=== PATIENT | female | born 1930 | race Caucasian/White ===

== ENCOUNTER 2017-03-14 23:33 | Inpatient (IN) | payer OTHER ==
[~2017-03-14] VITALS: Ht 167.6 cm; Wt 75.7 kg
[~2017-03-14 23:33] MED LIST: ACET160L15 PO; ACET325T9 PO; ACET325T9 RC; ALLO300T PO; AMLO2.5T PO; ASPI325T4 PO; ATOR10TA60 PO; BISA10SU55 RC; BISM262O PO; CARV3.122 PO; DEXT15DR5 EACHEYE; FURO-68 PO; FURO-69 PO; GUAI-297 PO; LEVE500T56 PO; LEVO75CA PO; LOVA20TA PO; MAGN2400 PO; METO25TA4 PO; NIFE30TA17 PO; NIFE60TA16 PO; OMEG1000 PO; POLY15DR28 OP; POTA20TA82 PO; SERT50TA PO; VENL75CA PO; [UNRECOGNIZED DRUG - CODE] PO
[2017-03-15 00:36] LABS: BASO # 0.1 x10^3/uL (0.0-0.2); BASO % 1 % (0-3); EOS % 5 % (0-3); HEMOGLOBIN 11.5 g/dL (12.0-15.5); LYMPH # 2.4 x10^3/uL (1.0-4.8); LYMPH % 40 % (24-48); MEAN CORPUSCULAR HEMOGLOBIN 34 pg (25-35); MEAN CORPUSCULAR HGB CONC 34 g/dL (31-37); MEAN CORPUSCULAR VOLUME 99 fL (79-100); MONO % 6 % (0-9); NEUT % 48 % (31-73); PLATELET COUNT 182 x10^3/uL (140-400); RED BLOOD COUNT 3.43 x10^6/uL (3.50-5.40); WHITE BLOOD COUNT 6.1 x10^3/uL (4.0-11.0)
[2017-03-15 00:48] LABS: CALCIUM 8.6 mg/dL (8.5-10.1); CREATININE 0.7 mg/dL (0.6-1.0); POTASSIUM 3.2 mmol/L (3.5-5.1)
[2017-03-15 00:51] LABS: PROTHROMBIN TIME PATIENT 12.3 SEC (11.7-14.0)
[2017-03-15 00:54] LABS: ALBUMIN/GLOBULIN RATIO 0.9 (1.0-1.7); TOTAL BILIRUBIN 0.4 mg/dL (0.2-1.0); TOTAL PROTEIN 6.2 g/dL (6.4-8.2)
[2017-03-15 01:05] LABS: BILIRUBIN,URINE NEGATIVE (NEG); GLUCOSE,URINE NEGATIVE (NEG); NITRITE,URINE NEGATIVE (NEG); PROTEIN,URINE NEGATIVE (NEG-TRACE); UROBILINOGEN,URINE 0.2 mg/dL (0.2 mg/dL)
--- NOTE | 2017-03-15 01:06 | RAD ---
INDICATION: Status post fall COMPARISON: September 18, 2016 TECHNIQUE: Axial CT images obtained through the head. One or more of the following individualized dose reduction techniques were utilized for this examination: 1. Automated exposure control; 2. Adjustment of the mA and/or kV according to patient size; 3. Use of iterative reconstruction technique. FINDINGS: No midline shift. Ventricles and sulci are prominent. Basilar cistern patent. No gross hemorrhage or intracranial mass. No displaced skull fracture. Regions of low attenuation of the white matter. Regions of encephalomalacia left cerebral hemisphere could be from old infarct. IMPRESSION: No acute intracranial hemorrhage. Regions of low attenuation of the white matter. Nonspecific but frequently secondary to chronic small vessel ischemic disease. Electronically signed by: Wayne Luke (March 15, 2017 01:04:36)
[2017-03-15 01:18] LABS: BACTERIA,URINE FEW /HPF (0-FEW); RBC,URINE 0 /HPF (0-2); WBC,URINE OCC /HPF (0-4)
[2017-03-15 01:19] LABS: SQUAMOUS EPITHELIAL CELL,UR FEW /LPF
[2017-03-15] MEDS ORDERED: ACETAMINOPHEN 325 MG TABLET. PO PRN ×2 (01:45→03:45)
[2017-03-15] MEDS ORDERED: ONDANSETRON PF 4 MG/2 ML VIAL. IV PRN (01:45)
[2017-03-15] MEDS ORDERED: POTASSIUM CHLORIDE 20 MEQ TABLET.ER. PO ONE (03:00)
[2017-03-15 03:22] VITALS: BP 154/63
[2017-03-15] MEDS ORDERED: ACET500T68 PO (03:45)
[2017-03-15] MEDS ORDERED: MENT118G TP (03:45)
[2017-03-15] MEDS ORDERED: [UNRECOGNIZED DRUG - CODE] TP (03:45)
[2017-03-15] MEDS ORDERED: MAGNESIUM HYDROXIDE 2,400 MG/30 ML ORAL.SUSP. PO PRN (04:00)
--- NOTE | 2017-03-15 04:58 | ACF ---
Admission Forms Criteria TELEMETRY CARE Telemetry Admission Guidelines (Place 'X' for any and all applicable criteria): Admission to telemetry [A] may be indicated for ANY ONE of the following(1)(2)(3 )(4)(5): [X]I. Cardiac disease, including ANY ONE of the following (9)(10)(11)(12)(13 ): [ ]a) Postacute MT [ ]b) Low-risk patients with ST-segment elevation MT who have undergone successful percutaneous coronary intervention [ ]c) Unstable angina [ ]d) Suspected MT (until it is ruled out) [ ]e) Post cardiac surgery (first 48 to 72 hours unless complications occur) [X]f) Acute arrhythmias (including significant tachycardia or bradycardia) [B] [ ]g) Firing of an implantable cardioverter defibrillator [C] [ ]h) Suspected pacemaker or implantable cardioverter defibrillator malfunction (10) [ ]i) New administration or adjustment of an antiarrhythmic drug [D ] [ ]j) Child admitted for acute congestive heart failure [ ]j) Long QT syndrome [ ]k) Advanced heart block (eg, second-degree Mobitz type II, third- degree heart block) [ ]l) Acute myocarditis or pericarditis [ ]m) Short-term (ambulatory or inpatient) monitoring after a cardiac procedure as indicated by ANY ONE of the following [E]: [ ]i) Electrophysiologic studies [ ]ii) Percutaneous coronary intervention with stent placement [ ]iii) Pacemaker placement with cardiac conduction defect [ ]iv) Implantable cardiac defibrillator placement [ ]II. Drug overdose or poisoning with substance that causes arrhythmias or QT prolongation (eg, phenothiazines, sympathomimetic agents, cyclic antidepressants, digitalis, antiarrhythmic drugs)(15) [ ]III. Short-term (ambulatory or inpatient) monitoring after therapeutic or diagnostic procedure requiring conscious sedation or anesthesia (eg, endoscopy, elective cardioversion) [ ]IV. Acute cerebrovascular even[F](18) [ ]V. Massive blood transfusion (eg, at least 10 units of packed red blood cells in 24 hours) [ ]. Variceal bleeding after endoscopy, sclerotherapy, or IV vasopressin [ ]VII. Uncorrected electrolyte abnormalities associated with an increased risk of dangerous arrhythmia [G]; examples include [ ]a) Hyperkalemia with attributable ECG changes [ ]b) Potassium greater than 6.5 mmol/L (mEq/L) in a patient without history of chronic renal disease [ ]c) Prolonged QT attributed to hypokalemia, hypomagnesemia, or hypocalcemia [ ]VIII.Unexplained syncope or other neurologic event suspected of being due to arrhythmia due to a finding that increases risk; examples include(19)(20)(21): [ ]a) High-risk ECG findings (eg, bifascicular block, bradycardia, abnormal QT interval, ventricular pre- excitation) [ ]b) History of previous syncope due to arrhythmia [ ]c) Abnormal ventricular function (eg, reduced ejection fraction ) [ ]d) Exertional or supine syncope [ ]e) Concerning syncope characteristics (eg, sudden loss of consciousness without prodrome) [ ]f) Family history of sudden [ ]g) Use of arrhythmogenic medication [ ]h) Suspected cardiac ischemia [ ]i) Known channelopathy (eg, long QT syndrome, Brugada syndrome, or catecholaminergic paroxysmal ventricular tachycardia) [ ]j) Known structural heart disease (eg, hypertrophic cardiomyopathy , severe valvular disease) [ ]k) Palpitations preceding syncope The original [employer] content created by [employer] has been revised. The portions of the content which have been revised are identified through the use of italic text or in bold, and [employer] has neither reviewed nor approved the modified material. All other unmodified content is copyright [employer]. Please see references footnoted in the original [employer] edition 2016 Admission Criteria Met?: Yes OLI SYKES March 15, 2017 04:58
--- NOTE | 2017-03-15 05:31 | PHYS DOC ---
Past Medical History Past Medical History: CVA, Depression, DVT, High Cholesterol, Hypertension, Hypothyroid, TIA Additional Past Medical Histor: Gout, osteoarthritis Past Surgical History: Hysterectomy, Other Additional Past Surgical Histo: bladder; "blood clot stent" Alcohol Use: None Drug Use: None Adult General Chief Complaint Chief Complaint: SYNCOPE HPI HPI Patient is a 87 year old female with a history significant for kidney disease and appendicitis in the past presents to the ER today secondary to falling twice. Patient reports that she has a history of hypertension and she is on calcium channel blockers for this. Patient reports today she fell twice and currently is complaining of pain to her left arm. Patient denies any head trauma. Patient complaining of left shoulder pain. Patient denies any fevers shakes chills patient denies any nausea vomiting or diarrhea. Patient has any chest pain or shortness of breath. Patient has any cough cold or runny nose. Patient has a dysuria frequency or urgency. Patient reports she been eating and drinking normally. Patient denies any pain to her back. Patient does complain of little bit of discomfort to her head on the left side. Patient reports that she thinks she is unclear as to why she fell. Patient thinks that she might have passed out prior to falling. Patient reports that she started on dizzy and fell. Patient does not recall being told that her heart rate is slow in the past. Patient's physical exam is significant for soft tissue swelling and ecchymosis with hematoma to her left proximal humerus. Patient's full range of motion to her shoulder joint. Patient has no C-spine T-spine or L-spine tenderness palpation. Patient has no tenderness to palpation to her left upper or right upper quadrant. Patient has no deformity or tenderness to her left or right hip. Patient has full range of motion to her lower 70s without any obvious discomfort. There is no shortening or rotation of her lower 70s. Patient is currently alert awake and oriented 3 and appropriate. Patient is able to make jokes and get around with me while wearing the ER and appears to be in good spirits. Patient's ER workup was remarkable for sinus bradycardia on her EKG and monitor. Patient's heart rate has been running intermittent between 45-55 on her monitor. Patient is alert awake and oriented 3. Patient had a CT scan that was unremarkable for any acute pathology. Patient's x-ray of her left shoulder was unremarkable for any acute fracture. Assessment and plan Syncopal episode. Patient's clinically he would and hemodynamically stable. Patient's workup in ER has been unremarkable as far except for her bradycardia. Patient will be admitted to the hospital for further evaluation and management of her bradycardia. Patient is on a calcium channel yakov. I discussed the case with her primary care physician Dr. Robledo in his requesting that we consult physical therapy as well as Dr. Gertrude Calixto to evaluate her further for her syncopal episodes and gait instability. Arm pain no acute fracture likely bruise/contusion/hematoma. Review of Systems Review of Systems Constitutional: Denies fever or chills [] Eyes: Denies change in visual acuity, redness, or eye pain [] HENT: Denies nasal congestion or sore throat [] All other review systems are negative except as documented in history of present illness portion. Allergies Allergies Allergies Coded Allergies Type Severity Reaction Last Updated Verified Penicillins Allergy Intermediate Rash 09/28/16 Yes Sulfa (Sulfonamide Antibiotics) Allergy Intermediate 02/09/17 Yes codeine Allergy Intermediate Rash 09/28/16 Yes iodine Allergy Intermediate 02/09/17 Yes oxybutynin Allergy Intermediate 02/09/17 Yes quinapril HCl Allergy Intermediate Rash 09/28/16 Yes tramadol Allergy Intermediate 02/09/17 Yes Physical Exam Physical Exam Constitutional: Well developed, well nourished, no acute distress, non-toxic appearance. [] HENT: Normocephalic, atraumatic, bilateral external ears normal, oropharynx moist, no oral exudates, nose normal. [] Eyes: PERRLA, EOMI, conjunctiva normal, no discharge. [] Neck: Normal range of motion, no tenderness, supple, no stridor. [] Cardiovascular:Heart rate regular rhythm bradycardic. Lungs & Thorax: Bilateral breath sounds clear to auscultation [] Abdomen: Bowel sounds normal, soft, no tenderness, no masses, no pulsatile masses. [] Skin: Warm, dry, no erythema, no rash. [] Back: No tenderness, no CVA tenderness. [] Extremities: No tenderness, no cyanosis, Neurologic: Alert and oriented X 3, normal motor function, normal sensory function, no focal deficits noted. [] Psychologic: Affect normal, judgement normal, mood normal. [] Current Patient Data Vital Signs Vital Signs Date Time Temp Pulse Resp B/P (MAP) Pulse Ox O2 Delivery O2 Flow Rate FiO2 03/15/17 01:26 52 200/78 (118) 96 Room Air 03/15/17 01:11 18 03/14/17 23:33 98.1 98.1 Lab Values Laboratory Tests Test 03/15/17 00:20 03/15/17 00:52 White Blood Count 6.1 x10^3/uL (4.0-11.0) Red Blood Count 3.43 x10^6/uL (3.50-5.40) L Hemoglobin 11.5 g/dL (12.0-15.5) L Hematocrit 34.0 % (36.0-47.0) L Mean Corpuscular Volume 99 fL (79-100) Mean Corpuscular Hemoglobin 34 pg (25-35) Mean Corpuscular Hemoglobin Concent 34 g/dL (31-37) Red Cell Distribution Width 15.0 % (11.5-14.5) H Platelet Count 182 x10^3/uL (140-400) Neutrophils (%) (Auto) 48 % (31-73) Lymphocytes (%) (Auto) 40 % (24-48) Monocytes (%) (Auto) 6 % (0-9) Eosinophils (%) (Auto) 5 % (0-3) H Basophils (%) (Auto) 1 % (0-3) Neutrophils # (Auto) 2.9 x10^3uL (1.8-7.7) Lymphocytes # (Auto) 2.4 x10^3/uL (1.0-4.8) Monocytes # (Auto) 0.4 x10^3/uL (0.0-1.1) Eosinophils # (Auto) 0.3 x10^3/uL (0.0-0.7) Basophils # (Auto) 0.1 x10^3/uL (0.0-0.2) Prothrombin Time 12.3 SEC (11.7-14.0) Prothrombin Time INR 1.0 (0.8-1.1) Sodium Level 143 mmol/L (136-145) Potassium Level 3.2 mmol/L (3.5-5.1) L Chloride Level 107 mmol/L (98-107) Carbon Dioxide Level 26 mmol/L (21-32) Anion Gap 10 (6-14) Blood Urea Nitrogen 16 mg/dL (7-20) Creatinine 0.7 mg/dL (0.6-1.0) Estimated GFR (Cockcroft-Gault) 79.0 BUN/Creatinine Ratio 23 (6-20) H Glucose Level 116 mg/dL (70-99) H Calcium Level 8.6 mg/dL (8.5-10.1) Total Bilirubin 0.4 mg/dL (0.2-1.0) Aspartate Amino Transferase (AST) 36 U/L (15-37) Alanine Aminotransferase (ALT) 21 U/L (14-59) Alkaline Phosphatase 68 U/L (46-116) Troponin I Quantitative < 0.017 ng/mL (0.000-0.055) HV-Ojz-C-Type Natriuretic Peptide 885 pg/mL (0-449) H Total Protein 6.2 g/dL (6.4-8.2) L Albumin 3.0 g/dL (3.4-5.0) L Albumin/Globulin Ratio 0.9 (1.0-1.7) L Urine Collection Type Unknown Urine Color Yellow Urine Clarity Clear Urine pH 7.0 Urine Specific [place] 1.015 Urine Protein Negative mg/dL (NEG-TRACE) Urine Glucose (UA) Negative mg/dL (NEG) Urine Ketones (Stick) Negative mg/dL (NEG) Urine Blood Negative (NEG) Urine Nitrite Negative (NEG) Urine Bilirubin Negative (NEG) Urine Urobilinogen Dipstick 0.2 mg/dL (0.2 mg/dL) Urine Leukocyte Esterase Negative (NEG) Urine RBC 0 /HPF (0-2) Urine WBC Occ /HPF (0-4) Urine Squamous Epithelial Cells Few /LPF Urine Bacteria Few /HPF (0-FEW) Urine Mucus Slight /LPF Laboratory Tests 03/15/17 00:20 Laboratory Tests 03/15/17 00:20 EKG EKG [] Radiology/Procedures Radiology/Procedures [] Course & Med Decision Making Course & Med Decision Making Pertinent Labs and Imaging studies reviewed. (See chart for details) [] Dragon Disclaimer Dragon Disclaimer This electronic medical record was generated, in whole or in part, using a voice recognition dictation system. Departure Departure Impression: Primary Impression: Bradyarrhythmia Additional Impressions: Status post fall Syncope Disposition: ADMITTED INPATIENT Admitting Physician: Taurus Robledo Condition: STABLE Referrals: TAURUS ROBLEDO MD (PCP) Problem Qualifiers FLORINDA VALADEZ MD March 15, 2017 05:31
[2017-03-15] MEDS: LEVOTHYROXINE 75 MCG TABLET PO SCH (06:06)
[2017-03-15 07:00] VITALS: BP 139/54
--- NOTE | 2017-03-15 07:18 | RAD ---
Portable chest, 03/15/2017: History: Syncope, multiple falls Comparison is made to a study from 02/07/2017. The heart size and pulmonary vascularity are normal. There is moderate calcific plaquing of the thoracic aorta. No acute infiltrates are seen. There is mild unchanged elevation of the right hemidiaphragm. There is minimal right basilar scarring. There is no evidence of pleural fluid. The bony structures are demineralized. Degenerative changes are present at the shoulders. IMPRESSION: No acute cardiopulmonary abnormality is detected.
--- NOTE | 2017-03-15 07:20 | RAD ---
Left shoulder, 3 views, 03/15/2017: History: Shoulder pain after a fall The bony structures are demineralized. No fracture or dislocation is identified. There are mild degenerative changes at the shoulder. Arterial calcifications are present. IMPRESSION: 1. Demineralization. 2. No acute left shoulder abnormality is detected. Left humerus, 2 views, 03/15/2017: The bony structures are demineralized. No fracture is identified. IMPRESSION: No acute left humeral abnormality is detected.
[2017-03-15] MEDS: SERTRALINE 50 MG TABLET. PO SCH (09:29)
[2017-03-15] MEDS: ACETAMINOPHEN 325 MG TABLET. PO SCH ×4 (09:29→20:34)
[2017-03-15] MEDS: levETIRAcetam 500 MG TABLET PO SCH ×2 (09:29→20:34)
[2017-03-15] MEDS: ALLOPURINOL 300 MG TABLET. PO SCH (09:29)
[2017-03-15] MEDS: amLODIPine BESYLATE 5 MG TABLET PO SCH (09:30)
[2017-03-15] MEDS: MULTIVITAMIN with MINERAL TABLET. PO SCH (09:31)
[2017-03-15] MEDS: ASPIRIN 325 MG TABLET PO SCH (09:31)
[2017-03-15] MEDS ORDERED: POTASSIUM CHLORIDE 20 MEQ/15 ML ORAL LIQUID. PO ONE (10:30)
--- NOTE | 2017-03-15 10:38 | PDOC ---
Provider Note Provider Note history and physical dictated # [id number] HAYLEY ESTRADA MD March 15, 2017 10:38
[2017-03-15 11:00] VITALS: BP 150/59
--- NOTE | 2017-03-15 11:55 | HP ---
ADMIT DATE: 03/15/2017 LOCATION: She is in room 504. HISTORY OF PRESENT ILLNESS: The patient is an 87-year-old white female, lives in an assisted living facility, recently dismissed from the long-term facility one week ago, who has a history of hypertension, hyperlipidemia, hypothyroidism and epilepsy who sustained 2 falls. The first fall occurred earlier in the day and the second fall occurred last night and she is complaining of left shoulder and left arm pain following the fall and believes she had a near syncopal episode. Denied any chest pain or shortness of breath. A chest x-ray, CAT scan of the head, x-ray of the left shoulder and left arm were all negative for any fractures or acute abnormality. She was noted to have a heart rate in the high 40s in the Emergency Room. An EKG was ordered, but I cannot find it in the chart, but her heart rate has been around 50 or so in the hospital. She has been seen by Dr. Wen, who will be checking orthostatic blood pressures and considering placement of a permanent pacemaker for sick sinus syndrome. In addition, her potassium was low today at 3.2. There has been no vomiting or diarrhea. She is therefore, admitted for further evaluation of her near syncope and mobility deficits. She does use a walker. ALLERGIES AND INTOLERANCES: INCLUDE PENICILLIN, SULFA, CODEINE, IODINE, OXYBUTYNIN, QUINAPRIL, AND TRAMADOL. MEDICATIONS: Tylenol 325 mg 1 tablet q.i.d., allopurinol 300 mg every day, amlodipine 5 mg every day, aspirin 325 mg every day, Keppra 500 mg b.i.d., levothyroxine 75 mcg every day, atorvastatin 5 mg at bedtime, Zoloft 50 mg every day, multiple vitamin every day. PAST MEDICAL HISTORY: Significant for hypertension, hyperlipidemia, hypothyroidism, gout, epilepsy, depression, debility. She had a deep vein thrombosis in 2001, cerebrovascular accident in 2001 and 2002. She has an inferior vena cava filter placed. Cardiac catheterization in 2003 showed normal coronary arteries. She had an appendectomy, cholecystectomy, hysterectomy, tonsillectomy, benign breast biopsy. SOCIAL HISTORY: She does not drink alcohol nor does she smoke cigarettes. She lives in assisted living facility, was just released from a long-term facility about a week ago. FAMILY HISTORY: Noncontributory. REVIEW OF SYSTEMS: GENERAL: There has been no fever, chills or sweats in the last 3 days. CARDIOVASCULAR: No chest pain. PULMONARY: No cough or shortness of breath. GASTROINTESTINAL: No constipation. SKIN: No rashes. NEUROLOGIC: No focal weakness. ENDOCRINE: No diabetes mellitus. Rest of systems reviewed are negative except as stated in history of present illness. PHYSICAL EXAMINATION: VITAL SIGNS: Temperature is 97.9 degrees, apical pulse is 49, respiratory rate is 20, blood pressure 139/54, oxygen saturation 94% on room air. HEENT: Eyes: Gaze is conjugate. Mouth: Tongue is midline. She is edentulous. NECK: No cervical lymphadenopathy or thyroid enlargement. HEART: Reveals an S1, S2. There is no S3 or murmur. LUNGS: Clear. ABDOMEN: Soft, nontender. EXTREMITIES: Lower extremities without edema. NEUROLOGIC: She is coherent and has no focal weakness in the arms or legs. SKIN: No rashes. LABORATORY DATA: White count 6.1, hemoglobin 11.5, platelet count , 48 polys and 40 lymphocytes. INR was 1.0. Sodium 143, potassium 3.2, chloride 107, total CO2 of 26. The BUN 16, creatinine 0.7, blood sugar 116. Liver function tests normal. ProBNP was 885. Troponin level was less than 0.017. The albumin was 3.0. Urinalysis showed occasional white cell. Could not find the electrocardiogram on the chart. The chest x-ray showed no acute abnormality. She had a CAT scan of the head done, which showed no acute abnormality. She had some evidence of a previous cerebrovascular accident in the left cerebral hemisphere. She had some encephalomalacia. She also had an x-ray of the left humerus and left shoulder, which was negative. She had some demineralization. Again, I could not locate the EKG. ASSESSMENT: 1. Near syncope with 2 recent falls within the last 24 hours. 2. Sinus bradycardia, suspect sick sinus syndrome. 3. Hypertension. 4. Hyperlipidemia. 5. Hypothyroidism. 6. Hypokalemia. 7. Epilepsy. PLAN: At this time, the patient has been seen by Dr. Wen for Cardiology. Physical and occupational therapy will be ordered. We will continue with her amlodipine for hypertension, allopurinol for gout, levothyroxine for hypothyroidism, atorvastatin for hyperlipidemia, and the Keppra for the seizure disorder. For hypokalemia, we will give her potassium chloride today and recheck her labs tomorrow including a BMP and a magnesium level. SCDs for deep vein thrombosis prophylaxis have been ordered and I will check orthostatic blood pressures. Again, she has been seen by Dr. Wen for Cardiology. She is a [id number] and that was confirmed with the daughter and the patient, and it is also recorded in her records from the assisted living facility. HAYLEY ESTRADA MD DR: LAVELL/deborah JOB#: [id number] / [id number]
--- NOTE | 2017-03-15 14:41 | EKG ---
[facility] [address] [place] [address] Test Date: 2017-03-14 Test Time: 23:39:49 Pat Name: PATRICIO TAYLOR Department: Room: Gender: F Model Technician: : [id number] Requested By: FLORINDA VALADEZ Order Number: [id number] Reading MD: Measurements Intervals [place] Rate: P: MO: QRS: QRSD: T: QT: QTc: Interpretive Statements
[2017-03-15 14:57] VITALS: BP 156/56
[2017-03-15 19:00] VITALS: BP 144/50
[2017-03-15] MEDS: ATORVASTATIN CALCIUM 10 MG TABLET. PO SCH (20:34)
--- NOTE | 2017-03-15 21:00 | PDOC ---
Provider Note Provider Note Consult dictated. Thank you Dr. Robledo for asking me to see her. TRINH GONZALEZ MD March 15, 2017 21:00
[2017-03-15 23:00] VITALS: BP 149/61
[2017-03-16] VITALS (18 sets, daily range): BP systolic 118–156; BP diastolic 53–75
[2017-03-16 04:08] LABS: INR 1.1 (0.8-1.1); PROTHROMBIN TIME PATIENT 13.5 SEC (11.7-14.0)
[2017-03-16 04:16] LABS: CALCIUM 8.7 mg/dL (8.5-10.1); CREATININE 0.8 mg/dL (0.6-1.0); GFR 67.7; MAGNESIUM 1.9 mg/dL (1.8-2.4); POTASSIUM 3.8 mmol/L (3.5-5.1)
--- NOTE | 2017-03-16 04:25 | CONS ---
DATE OF CONSULTATION: 03/15/2017 HISTORY OF PRESENT ILLNESS: This is an 87-year-old white female who came in after two falls. She complained of pain in her shoulder. X-rays were done and there was no evidence of a fracture. She was then hospitalized. She was here about a month ago on 02/07/2017 after a fall. She was noted to have bradycardia in the 50s. While at a heart rate of 50, she was asymptomatic. She also had a very brief episode of atrial tachycardia lasting 5 seconds with a rate of 133 beats per minute. 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 She showed evidence of orthostatic hypotension. She was on Lasix. That was discontinued. During her last hospitalization, she underwent an echocardiogram. The left ventricular systolic function was normal with an ejection fraction of 50-55%. There is no significant valvular dysfunction. There is a grade 1 diastolic dysfunction. Her chest x-ray showed no pulmonary vascular congestion. The Lasix was thus discontinued. She says that the day before hospitalization, when she got up, she felt dizzy and fell. She also had another fall when she was standing. She does get some dizziness on standing. She is a poor historian. She gives history of hypertension, hyperlipidemia, hypothyroidism and epilepsy. She had a TSH drawn the last time and the dose of the Synthroid for her hypothyroidism was adequate. Coronary arteriograms done in 2003 is said to have been normal. In the past, she has had an appendectomy, cholecystectomy and hysterectomy. MEDICATIONS: At the [facility] have been; 1. Allopurinol 300 mg a day. 2. Amlodipine 5 mg a day. 3. Aspirin 325 mg a day. 4. Atorvastatin 10 mg a day. 5. Lasix has been listed, but it was supposed to have been discontinued. 6. Keppra 500 mg twice a day. 7. Synthroid 75 mcg a day. 8. Potassium chloride 20 mEq a day. 9. Zoloft 10 mg at night. PHYSICAL EXAMINATION: GENERAL: She is alert. She is pleasant. She answered questions appropriately. VITAL SIGNS: The heart rate is 50 per minute and regular. The blood pressure is 140/50. LUNGS: Clear. HEART: The heart sounds are normal with no murmur or gallop. EXTREMITIES: There is no edema of the legs. An EKG showed a sinus rhythm. The QRS complex was mildly increased to [address]-T wave changes. LABORATORY DATA: Hemoglobin was 11.5. The BNP was mildly elevated to 885. The BUN was 16, creatinine was 0.7. The sodium was 143 and the potassium was 3.2. A chest x-ray was normal. CT of the head was normal. Orthostatics were done during this hospitalization and there was no evidence of orthostatic hypotension. IMPRESSION: 1. Frequent falls, etiology unclear. 2. Sick sinus syndrome with sinus bradycardia and episodic atrial tachycardia. 3. No evidence of orthostatic hypotension. 4. Mild dementia. This patient has had several falls. She has a consistent heart rate of 50 beats per minute. This is relatively low for a patient in her age. The heart rate does not go up from sitting to a standing position. The blood pressure does not drop. It is quite possible that she is falling due to other reasons such as loss of balance. She has a history of seizures, but I do not think that is the etiology. Even though she is hypothyroid, it is being adequately replaced. This being the case, I believe we should place a permanent pacemaker in her. It would have to be a dual chamber pacemaker so that she paces the atrium and has a normal conduction to the QRS complex. Other measures to prevent a fall such as physical therapy and assistive devices such as or walker should be provided. I will continue to hold the furosemide because she did have orthostatic hypotension at one time and I see no need for it. I have spoken to the patient and her daughter. They are agreeable. It has been scheduled for tomorrow afternoon. In the meantime, I would like to get a Keppra level and an MRI. Thank you, Dr. Robledo for asking me to see her. TRINH GONZALEZ MD DR: JOSEPH/deborah JOB#: [id number] / [id number]
[2017-03-16] MEDS: LEVOTHYROXINE 75 MCG TABLET PO SCH (05:27)
[2017-03-16] MEDS ORDERED: BACITRACIN 50,000 UNIT in IV NORMAL SALINE 250ML 250 ML IRR ONE (06:00)
[2017-03-16] MEDS: ASPIRIN 325 MG TABLET PO SCH (08:22)
[2017-03-16] MEDS: levETIRAcetam 500 MG TABLET PO SCH ×2 (08:28→21:09)
[2017-03-16] MEDS: MULTIVITAMIN with MINERAL TABLET. PO SCH (08:29)
[2017-03-16] MEDS: amLODIPine BESYLATE 5 MG TABLET PO SCH (08:29)
[2017-03-16] MEDS: SERTRALINE 50 MG TABLET. PO SCH (08:30)
[2017-03-16] MEDS: ALLOPURINOL 300 MG TABLET. PO SCH (08:30)
[2017-03-16] MEDS: ACETAMINOPHEN 325 MG TABLET. PO SCH ×4 (08:30→21:00)
--- NOTE | 2017-03-16 11:22 | PDOC ---
PROGRESS NOTES Subjective Subjective feels well. denies chest pain or shortness of breath or dizziness. labs reviewed. had breakfast today. will have pacemaker placed this afternoon. Objective Objective Vital Signs Date Time Temp Pulse Resp B/P (MAP) Pulse Ox O2 Delivery O2 Flow Rate FiO2 03/16/17 11:00 96.1 80 17 146/63 (90) 97 Room Air 96.1 Intake and Output 03/16/17 07:00 Intake Total 920 ml Output Total 2 ml Balance 918 ml Intake Oral 920 ml Output Stool Total 2 ml # Voids 19 Physical Exam Abdomen: Soft Heart: Regular rate, Normal S1, Normal S2 Extremities: No edema General: Alert HEENT: Atraumatic Lungs: Clear to auscultation Neuro: Normal speech Psych/Mental Status: Mood NL Skin: No rashes Assessment Assessment Problems1. Near syncope with 2 recent falls within the last 24 hours. 2. sick sinus syndrome. 3. Hypertension. 4. Hyperlipidemia. 5. Hypothyroidism. 6. Hypokalemia. resolved 7. Epilepsy. Medical Problems: (1) Status post fall Status: Acute (2) Syncope Status: Acute Plan Plan of Care permanent pacemaker today Comment Review of Relevant I have reviewed the following items toribio (where applicable) has been applied. Labs Laboratory Tests Test 03/15/17 00:20 03/15/17 00:52 03/15/17 06:00 03/16/17 03:40 White Blood Count 6.1 x10^3/uL (4.0-11.0) Red Blood Count 3.43 x10^6/uL (3.50-5.40) Hemoglobin 11.5 g/dL (12.0-15.5) Hematocrit 34.0 % (36.0-47.0) Mean Corpuscular Volume 99 fL (79-100) Mean Corpuscular Hemoglobin 34 pg (25-35) Mean Corpuscular Hemoglobin Concent 34 g/dL (31-37) Red Cell Distribution Width 15.0 % (11.5-14.5) Platelet Count 182 x10^3/uL (140-400) Neutrophils (%) (Auto) 48 % (31-73) Lymphocytes (%) (Auto) 40 % (24-48) Monocytes (%) (Auto) 6 % (0-9) Eosinophils (%) (Auto) 5 % (0-3) Basophils (%) (Auto) 1 % (0-3) Neutrophils # (Auto) 2.9 x10^3uL (1.8-7.7) Lymphocytes # (Auto) 2.4 x10^3/uL (1.0-4.8) Monocytes # (Auto) 0.4 x10^3/uL (0.0-1.1) Eosinophils # (Auto) 0.3 x10^3/uL (0.0-0.7) Basophils # (Auto) 0.1 x10^3/uL (0.0-0.2) Prothrombin Time 12.3 SEC (11.7-14.0) 13.5 SEC (11.7-14.0) Prothromb Time International Ratio 1.0 (0.8-1.1) 1.1 (0.8-1.1) Sodium Level 143 mmol/L (136-145) 144 mmol/L (136-145) Potassium Level 3.2 mmol/L (3.5-5.1) 3.8 mmol/L (3.5-5.1) Chloride Level 107 mmol/L (98-107) 110 mmol/L (98-107) Carbon Dioxide Level 26 mmol/L (21-32) 25 mmol/L (21-32) Anion Gap 10 (6-14) 9 (6-14) Blood Urea Nitrogen 16 mg/dL (7-20) 14 mg/dL (7-20) Creatinine 0.7 mg/dL (0.6-1.0) 0.8 mg/dL (0.6-1.0) Estimated GFR (Cockcroft-Gault) 79.0 67.7 BUN/Creatinine Ratio 23 (6-20) Glucose Level 116 mg/dL (70-99) 99 mg/dL (70-99) Calcium Level 8.6 mg/dL (8.5-10.1) 8.7 mg/dL (8.5-10.1) Total Bilirubin 0.4 mg/dL (0.2-1.0) Aspartate Amino Transf (AST/SGOT) 36 U/L (15-37) Alanine Aminotransferase (ALT/SGPT) 21 U/L (14-59) Alkaline Phosphatase 68 U/L (46-116) Troponin I Quantitative < 0.017 ng/mL (0.000-0.055) KS-Abm-M-Type Natriuretic Peptide 885 pg/mL (0-449) Total Protein 6.2 g/dL (6.4-8.2) Albumin 3.0 g/dL (3.4-5.0) Albumin/Globulin Ratio 0.9 (1.0-1.7) Urine Collection Type Unknown Urine Color Yellow Urine Clarity Clear Urine pH 7.0 Urine Specific Adel 1.015 Urine Protein Negative mg/dL (NEG-TRACE) Urine Glucose (UA) Negative mg/dL (NEG) Urine Ketones (Stick) Negative mg/dL (NEG) Urine Blood Negative (NEG) Urine Nitrite Negative (NEG) Urine Bilirubin Negative (NEG) Urine Urobilinogen Dipstick 0.2 mg/dL (0.2 mg/dL) Urine Leukocyte Esterase Negative (NEG) Urine RBC 0 /HPF (0-2) Urine WBC Occ /HPF (0-4) Urine Squamous Epithelial Cells Few /LPF Urine Bacteria Few /HPF (0-FEW) Urine Mucus Slight /LPF Nasal Screen MRSA (PCR) Negative (Negative) Magnesium Level 1.9 mg/dL (1.8-2.4) Laboratory Tests Test 03/16/17 03:40 Prothrombin Time 13.5 SEC (11.7-14.0) Prothromb Time International Ratio 1.1 (0.8-1.1) Sodium Level 144 mmol/L (136-145) Potassium Level 3.8 mmol/L (3.5-5.1) Chloride Level 110 mmol/L (98-107) Carbon Dioxide Level 25 mmol/L (21-32) Anion Gap 9 (6-14) Blood Urea Nitrogen 14 mg/dL (7-20) Creatinine 0.8 mg/dL (0.6-1.0) Estimated GFR (Cockcroft-Gault) 67.7 Glucose Level 99 mg/dL (70-99) Calcium Level 8.7 mg/dL (8.5-10.1) Magnesium Level 1.9 mg/dL (1.8-2.4) Medications Current Medications Ondansetron HCl (Zofran) 4 mg PRN Q8HRS PRN IV NAUSEA/VOMITING Last administered on 03/15/17t 02:02; Start 03/15/17 at 01:45; Stop 03/16/17 at 01:44 ; Status DC Acetaminophen (Tylenol) 650 mg PRN Q4HRS PRN PO FEVER Last administered on 03/15 02:02; Start 03/15/17 at 01:45; Stop 03/15/17 at 03:50; Status DC Potassium Chloride (Klor-Con) 40 meq 1X ONCE PO Last administered on 02:49; Start 03/15/17 at 03:00; Stop 03/15/17 at 03:01; Status DC Acetaminophen (Tylenol) 325 mg QID PO Last administered on 03/16/17 08:30; Start 03/15/17 at 09:00 Allopurinol (Zyloprim) 300 mg DAILY PO Last administered on 03/16/17 08:30; Start 03/15/17 at 09:00 Amlodipine Besylate (Norvasc) 5 mg DAILY PO Last administered on 03/16/17 08: 29; Start 03/15/17 at 09:00 Aspirin (Shahram Aspirin) 325 mg DAILY PO Last administered on 03/15/17 09:31; Start 03/15/17 at 09:00 Atorvastatin Calcium (Lipitor) 5 mg HS PO Last administered on 03/15/17 20:34 ; Start 03/15/17 at 21:00 Levetiracetam (Keppra) 500 mg BID PO Last administered on 03/16/17 08:28; Start 03/15/17 at 09:00 Sertraline HCl (Zoloft) 50 mg DAILY PO Last administered on 03/16/17 08:30; Start 03/15/17 at 09:00 Levothyroxine Sodium (Synthroid) 75 mcg DAILY07 PO Last administered on 05:27; Start 03/15/17 at 07:00 Magnesium Hydroxide (Milk Of Magnesia) 2,400 mg PRN DAILY PRN PO CONSTIPATION; Start 03/15/17 at 04:00 Multivitamins (Thera M Plus) 1 tab DAILY PO Last administered on 03/16/17 08: 29; Start 03/15/17 at 09:00 Acetaminophen (Tylenol) 650 mg PRN Q4HRS PRN PO MILD PAIN / TEMP; Start at 03:45 Potassium Chloride (KCl Oral Soln) 40 meq 1X ONCE PO Last administered on 03/15t 11:30; Start 03/15/17 at 10:30; Stop 03/15/17 at 10:31; Status DC Active Scripts Active Lasix (Furosemide) 40 Mg Tablet 40 Mg PO DAILY Keppra (Levetiracetam) 500 Mg Tablet 500 Mg PO BID Reported Acetaminophen 500 Mg Tablet 650 Mg PO PRN Q4HRS PRN Biofreeze (Menthol) 118 Ml Gel..ml. 118 Ml TP Pain Relieving Gel (Menthol) 120 Gm Gel..gram. 120 Gm TP Milk Of Magnesia (Magnesium Hydroxide) 2,400 Mg/10 Ml Oral.susp 2,400 Mg PO PRN DAILY Zoloft (Sertraline Hcl) 50 Mg Tablet 50 Mg PO DAILY Amlodipine Besylate 2.5 Mg Tablet 5 Mg PO DAILY Aspirin 325 Mg Tablet 1 Tab PO DAILY Atorvastatin Calcium 10 Mg Tablet 5 Mg PO HS Tylenol (Acetaminophen) 325 Mg Tablet 325 Mg PO QID Liquitears (Polyvinyl Alcohol) 15 Ml Drops 1 Drop OP PRN TID Potassium Chloride 20 Meq Tablet.er 20 Meq PO BID Tirosint (Levothyroxine Sodium) 75 Mcg Capsule 75 Mcg PO DAILY Century Adults 50+ Tablet (Multivits-Min/Fa/Lycopene/Lut) 1 Each Tablet 1 Each PO DAILY Allopurinol 300 Mg Tablet 300 Mg PO DAILY Vitals/I & O Vital Sign - Last 24 Hours 03/15/17 03/15/17 03/15/17 03/15/17 14:57 19:00 19:45 23:00 Temp 96.4 97.5 97.7 96.4 97.5 97.7 Pulse 49 48 49 Resp 18 18 20 B/P (MAP) 156/56 (89) 144/50 (81) 149/61 (90) Pulse Ox 97 90 92 O2 Delivery Room Air Room Air Room Air Room Air 03/16/17 03/16/17 03/16/17 03/16/17 07:00 07:05 07:10 08:00 Temp 97.5 97.5 Pulse 50 52 56 Resp 18 B/P (MAP) 135/60 (85) 150/66 (94) 142/58 (86) Pulse Ox 96 92 96 O2 Delivery Room Air Room Air 03/16/17 03/16/17 08:29 11:00 Temp 96.1 96.1 Pulse 50 80 Resp 17 B/P (MAP) 135/66 146/63 (90) Pulse Ox 97 O2 Delivery Room Air Intake and Output 03/15/17 03/15/17 03/16/17 15:00 23:00 07:00 Intake Total 920 ml Output Total 2 ml Balance 918 ml HAYLEY ESTRADA MD March 16, 2017 11:22
[2017-03-16] MEDS ORDERED: VANCOMYCIN 1.25 GM in IV NORMAL SALINE 250ML 250 ML IV ONE (15:00)
[2017-03-16] MEDS ORDERED: VANCOMYCIN 1 GM in IV NORMAL SALINE 250ML 250 ML IV ONE (15:00)
[2017-03-16] MEDS ORDERED: LIDOCAINE 2%/EPI 1:100,000 20 ML VIAL. ONE (16:09)
[2017-03-16] MEDS ORDERED: MIDAZOLAM HCL/PF 2 MG/2 ML VIAL. ONE (16:22)
[2017-03-16] MEDS ORDERED: fentaNYL PF VIAL 100 MCG/2 ML VIAL ONE (16:22)
[2017-03-16] MEDS ORDERED: IOHEXOL 300 MG/ML 100ML VIAL. ONE (16:38)
[2017-03-16] MEDS ORDERED: LIDOCAINE 2%/EPI 1:100,000 20 ML VIAL. IJ ONE (16:45)
[2017-03-16] MEDS ORDERED: MIDAZOLAM HCL/PF 2 MG/2 ML VIAL. IV ONE (16:45)
[2017-03-16] MEDS ORDERED: fentaNYL PF VIAL 100 MCG/2 ML VIAL IV ONE (16:45)
[2017-03-16] MEDS ORDERED: CONTRAST GIVEN MC PRN (17:00)
[2017-03-16] MEDS ORDERED: IOHEXOL 300 MG/ML 100ML VIAL. IART ONE (17:00)
--- NOTE | 2017-03-16 19:38 | PDOC4 ---
PROCEDURE Procedure PROCEDURE NOTE Procedure: Insertion of dual-chamber permanent pacemaker Preoperative diagnosis: Bradycardia Postoperative diagnosis: The same Procedure note: After obtaining informed consent the patient was brought to the [facility]. The patient received IV antibiotics as per protocol. The left shoulder area was prepped and draped in the usual fashion and the area was infiltrated with Xylocaine to obtain topical anesthesia. The skin was then incised. Bleeders were cauterized. With blunt dissection I then advanced all the way down to the fascia and then created a pocket. A 4 x 4 wetted with antibiotic solution was then placed in the pocket. Using Seldinger technique a peel-away sheath was then inserted into the left subclavian with a 2 guidewire technique. Over one of the wires a peel-away sheath was position and then the dilator and guidewire were removed. A pacing lead was then advanced all the way to the RA and then across the tricuspid valve into the RV once I was satisfied with the positioning in the RV and we had checked the sensing as well as the pacing thresholds the lead was then secured in place. Over the remaining guidewire and another peel-away sheath was advanced and then the dilator and the guidewire were removed. A pacing lead was then advanced all the way to the RA and then with a J shaped stylet were able to manipulate the lead until I was satisfied with the positioning and the active-fixation device was deployed. We then checked the sensing and pacing thresholds and found them to be acceptable. After verifying the identity of each one of the pacing leads they were connected to the [employer] MRI compatible dual-chamber generator. The pacing leads had been sutured in place. The 4 x 4 was then removed from the pocket and the whole area was irrigated with antibiotic solution. The leads and the pacemaker generator were then placed in the pocket and the pocket was closed with 3 layers of running sutures. The skin edges were then approximated with Dermabond. After the Dermabond was dry a dressing was applied to the area. The patient was then transferred to her room in satisfactory condition after tolerating the procedure rather well. Further workup and treatment as per YAIMA Saldivar MD March 16, 2017 19:38
--- NOTE | 2017-03-16 20:48 | PDOC ---
Provider Note Provider Note Tolerated insertion of pacemaker. Now A sensed and V paced TRINH GONZALEZ MD March 16, 2017 20:48
[2017-03-16] MEDS: ATORVASTATIN CALCIUM 10 MG TABLET. PO SCH (21:09)
[2017-03-17 03:40] VITALS: BP 121/58
[2017-03-17 04:28] LABS: BASO % 0 % (0-3); EOS % 4 % (0-3); HEMATOCRIT 37.4 % (36.0-47.0); HEMOGLOBIN 12.1 g/dL (12.0-15.5); LYMPH # 1.4 x10^3/uL (1.0-4.8); LYMPH % 24 % (24-48); MEAN CORPUSCULAR HEMOGLOBIN 33 pg (25-35); MEAN CORPUSCULAR HGB CONC 32 g/dL (31-37); MEAN CORPUSCULAR VOLUME 101 fL (79-100); MONO % 4 % (0-9); NEUT % 68 % (31-73); PLATELET COUNT 180 x10^3/uL (140-400); RED CELL DISTRIBUTION WIDTH 14.9 % (11.5-14.5)
[2017-03-17 04:37] LABS: CALCIUM 9.1 mg/dL (8.5-10.1); CREATININE 0.9 mg/dL (0.6-1.0); GFR 59.1; POTASSIUM 3.9 mmol/L (3.5-5.1)
[2017-03-17] MEDS ORDERED: VANCOMYCIN 1 GM in IV NORMAL SALINE 250ML 250 ML IV ONE (05:00)
[2017-03-17] MEDS: LEVOTHYROXINE 75 MCG TABLET PO SCH (05:58)
[2017-03-17 07:00] VITALS: BP 151/68
--- NOTE | 2017-03-17 08:32 | RAD ---
Portable chest, 03/16/2017: History: Post pacemaker insertion Comparison is made to a study from 03/15/2017. A left-sided transvenous pacemaker has been inserted with 2 leads extending into the right heart. The heart size and pulmonary vascularity are normal. There is calcific plaquing and tortuosity of the thoracic aorta. There is mild unchanged elevation of the hemidiaphragm. There is mild underlying right basilar linear scarring or atelectasis. No acute infiltrates are seen. There is no evidence of pleural fluid or pneumothorax. IMPRESSION: 1. Interval insertion of a left-sided transvenous pacemaker. 2. No other significant change since 03/15/2017.
--- NOTE | 2017-03-17 08:38 | PDOC ---
PROGRESS NOTES Subjective Subjective some post op pain with pacemaker. pacemaker site dry. left shoulder immobilized . will screen for snf and transfer to snf tomorrow. pacemaker working well. Objective Objective Vital Signs Date Time Temp Pulse Resp B/P (MAP) Pulse Ox O2 Delivery O2 Flow Rate FiO2 03/17/17 03:40 98.2 60 16 121/58 (79) 97 Room Air 98.2 03/16/17 17:19 3.0 Intake and Output 03/17/17 07:00 Intake Total 125 ml Balance 125 ml Intake Oral 125 ml # Voids 5 Physical Exam Abdomen: Soft Heart: Regular rate, Normal S1, Normal S2 Extremities: No edema General: Alert HEENT: Atraumatic Lungs: Clear to auscultation Neuro: Normal speech Psych/Mental Status: Mood NL Skin: No rashes, Other (pacemaker dressing dry) Assessment Assessment Problems. Near syncope due to sick sinus syndrome. pacemaker placed 2. sick sinus syndrome. 3. Hypertension. 4. Hyperlipidemia. 5. Hypothyroidism. 6. Hypokalemia. resolved 7. Epilepsy. Medical Problems: (1) Status post fall Status: Acute (2) Syncope Status: Acute Plan Plan of Care snf screen and transfer tomorrow PT and OT Comment Review of Relevant I have reviewed the following items toribio (where applicable) has been applied. Labs Laboratory Tests Test 03/16/17 03:40 03/17/17 03:25 03/17/17 03:55 Prothrombin Time 13.5 SEC (11.7-14.0) Prothromb Time International Ratio 1.1 (0.8-1.1) Sodium Level 144 mmol/L (136-145) 143 mmol/L (136-145) Potassium Level 3.8 mmol/L (3.5-5.1) 3.9 mmol/L (3.5-5.1) Chloride Level 110 mmol/L (98-107) 107 mmol/L (98-107) Carbon Dioxide Level 25 mmol/L (21-32) 26 mmol/L (21-32) Anion Gap 9 (6-14) 10 (6-14) Blood Urea Nitrogen 14 mg/dL (7-20) 15 mg/dL (7-20) Creatinine 0.8 mg/dL (0.6-1.0) 0.9 mg/dL (0.6-1.0) Estimated GFR (Cockcroft-Gault) 67.7 59.1 Glucose Level 99 mg/dL (70-99) 89 mg/dL (70-99) Calcium Level 8.7 mg/dL (8.5-10.1) 9.1 mg/dL (8.5-10.1) Magnesium Level 1.9 mg/dL (1.8-2.4) White Blood Count 6.0 x10^3/uL (4.0-11.0) Red Blood Count 3.70 x10^6/uL (3.50-5.40) Hemoglobin 12.1 g/dL (12.0-15.5) Hematocrit 37.4 % (36.0-47.0) Mean Corpuscular Volume 101 fL (79-100) Mean Corpuscular Hemoglobin 33 pg (25-35) Mean Corpuscular Hemoglobin Concent 32 g/dL (31-37) Red Cell Distribution Width 14.9 % (11.5-14.5) Platelet Count 180 x10^3/uL (140-400) Neutrophils (%) (Auto) 68 % (31-73) Lymphocytes (%) (Auto) 24 % (24-48) Monocytes (%) (Auto) 4 % (0-9) Eosinophils (%) (Auto) 4 % (0-3) Basophils (%) (Auto) 0 % (0-3) Neutrophils # (Auto) 4.1 x10^3uL (1.8-7.7) Lymphocytes # (Auto) 1.4 x10^3/uL (1.0-4.8) Monocytes # (Auto) 0.2 x10^3/uL (0.0-1.1) Eosinophils # (Auto) 0.2 x10^3/uL (0.0-0.7) Basophils # (Auto) 0.0 x10^3/uL (0.0-0.2) Laboratory Tests Test 03/17/17 03:25 03/17/17 03:55 Sodium Level 143 mmol/L (136-145) Potassium Level 3.9 mmol/L (3.5-5.1) Chloride Level 107 mmol/L (98-107) Carbon Dioxide Level 26 mmol/L (21-32) Anion Gap 10 (6-14) Blood Urea Nitrogen 15 mg/dL (7-20) Creatinine 0.9 mg/dL (0.6-1.0) Estimated GFR (Cockcroft-Gault) 59.1 Glucose Level 89 mg/dL (70-99) Calcium Level 9.1 mg/dL (8.5-10.1) White Blood Count 6.0 x10^3/uL (4.0-11.0) Red Blood Count 3.70 x10^6/uL (3.50-5.40) Hemoglobin 12.1 g/dL (12.0-15.5) Hematocrit 37.4 % (36.0-47.0) Mean Corpuscular Volume 101 fL (79-100) Mean Corpuscular Hemoglobin 33 pg (25-35) Mean Corpuscular Hemoglobin Concent 32 g/dL (31-37) Red Cell Distribution Width 14.9 % (11.5-14.5) Platelet Count 180 x10^3/uL (140-400) Neutrophils (%) (Auto) 68 % (31-73) Lymphocytes (%) (Auto) 24 % (24-48) Monocytes (%) (Auto) 4 % (0-9) Eosinophils (%) (Auto) 4 % (0-3) Basophils (%) (Auto) 0 % (0-3) Neutrophils # (Auto) 4.1 x10^3uL (1.8-7.7) Lymphocytes # (Auto) 1.4 x10^3/uL (1.0-4.8) Monocytes # (Auto) 0.2 x10^3/uL (0.0-1.1) Eosinophils # (Auto) 0.2 x10^3/uL (0.0-0.7) Basophils # (Auto) 0.0 x10^3/uL (0.0-0.2) Medications Current Medications Ondansetron HCl (Zofran) 4 mg PRN Q8HRS PRN IV NAUSEA/VOMITING Last administered on 03/15/17 02:02; Start 03/15/17 at 01:45; Stop 03/16/17 at 01:44 ; Status DC Acetaminophen (Tylenol) 650 mg PRN Q4HRS PRN PO FEVER Last administered on 03/15 02:02; Start 03/15/17 at 01:45; Stop 03/15/17 at 03:50; Status DC Potassium Chloride (Klor-Con) 40 meq 1X ONCE PO Last administered on 02:49; Start 03/15/17 at 03:00; Stop 03/15/17 at 03:01; Status DC Acetaminophen (Tylenol) 325 mg QID PO Last administered on 03/16/17 18:28; Start 03/15/17 at 09:00 Allopurinol (Zyloprim) 300 mg DAILY PO Last administered on 03/16/17 08:30; Start 03/15/17 at 09:00 Amlodipine Besylate (Norvasc) 5 mg DAILY PO Last administered on 03/16/17 08: 29; Start 03/15/17 at 09:00 Aspirin (Shahram Aspirin) 325 mg DAILY PO Last administered on 03/15/17 09:31; Start 03/15/17 at 09:00 Atorvastatin Calcium (Lipitor) 5 mg HS PO Last administered on 03/16/17 21:09 ; Start 03/15/17 at 21:00 Levetiracetam (Keppra) 500 mg BID PO Last administered on 03/16/17 21:09; Start 03/15/17 at 09:00 Sertraline HCl (Zoloft) 50 mg DAILY PO Last administered on 03/16/17 08:30; Start 03/15/17 at 09:00 Levothyroxine Sodium (Synthroid) 75 mcg DAILY07 PO Last administered on 05:58; Start 03/15/17 at 07:00 Magnesium Hydroxide (Milk Of Magnesia) 2,400 mg PRN DAILY PRN PO CONSTIPATION; Start 03/15/17 at 04:00 Multivitamins (Thera M Plus) 1 tab DAILY PO Last administered on 03/16/17 08: 29; Start 03/15/17 at 09:00 Acetaminophen (Tylenol) 650 mg PRN Q4HRS PRN PO MILD PAIN / TEMP Last administered on 03/16/17 23:14; Start 03/15/17 at 03:45 Potassium Chloride (KCl Oral Soln) 40 meq 1X ONCE PO Last administered on 03/15 11:30; Start 03/15/17 at 10:30; Stop 03/15/17 at 10:31; Status DC Vancomycin HCl 1.25 gm/Sodium Chloride 250 ml @ 166.667 mls/hr 1X ONCE IV ; Start 03/16/17 at 15:00; Stop 03/16/17 at 16:29; Status Cancel Vancomycin HCl 1 gm/Sodium Chloride 250 ml @ 250 mls/hr 1X ONCE IV Last administered on 03/16/17 16:45; Start 03/16/17 at 15:00; Stop 03/16/17 at 15:59 ; Status DC Lidocaine/ Epinephrine (Xylocaine 2%-Epi 1:100,000) 20 ml STK-MED ONCE .ROUTE ; Start 03/16/17 at 16:09; Stop 03/16/17 at 16:10; Status DC Bacitracin 98698 unit/Sodium Chloride 250 ml @ 250 mls/hr 1X PERIOP ONCE IRR Last administered on 03/16/17 16:44; Start 03/16/17 at 06:00; Stop 03/16/17 at 16:12; Status DC Midazolam HCl (Versed) 2 mg STK-MED ONCE .ROUTE ; Start 03/16/17 at 16:22; Stop 03/16/17 at 16:23; Status DC Fentanyl Citrate (Fentanyl 2ml Vial) 100 mcg STK-MED ONCE .ROUTE ; Start at 16:22; Stop 03/16/17 at 16:23; Status DC Midazolam HCl (Versed) 1 mg 1X ONCE IV Last administered on 03/16/17 17:17; Start 03/16/17 at 16:45; Stop 03/16/17 at 16:46; Status DC Fentanyl Citrate (Fentanyl 2ml Vial) 50 mcg 1X ONCE IV Last administered on 17:18; Start 03/16/17 at 16:45; Stop 03/16/17 at 16:46; Status DC Lidocaine/ Epinephrine (Xylocaine 2%-Epi 1:100,000) 40 ml 1X ONCE IJ Last administered on 03/16/17 16:45; Start 03/16/17 at 16:45; Stop 03/16/17 at 16:46 ; Status DC Iohexol (Omnipaque 300 Mg/ml) 100 ml STK-MED ONCE .ROUTE ; Start 03/16/17 at 16: 38; Stop 03/16/17 at 16:39; Status DC Iohexol (Omnipaque 300 Mg/ml) 100 ml 1X ONCE IART Last administered on 17:19; Start 03/16/17 at 17:00; Stop 03/16/17 at 17:01; Status DC Info (Do NOT chart on this entry -- for MONITORING) 1 each PRN DAILY PRN MC SEE COMMENTS; Start 03/16/17 at 17:00; Stop 03/18/17 at 16:59 Vancomycin HCl 1 gm/Sodium Chloride 250 ml @ 250 mls/hr 1X ONCE IV Last administered on 03/17/17 05:16; Start 03/17/17 at 05:00; Stop 03/17/17 at 05:59 ; Status DC Active Scripts Active Lasix (Furosemide) 40 Mg Tablet 40 Mg PO DAILY Keppra (Levetiracetam) 500 Mg Tablet 500 Mg PO BID Reported Acetaminophen 500 Mg Tablet 650 Mg PO PRN Q4HRS PRN Biofreeze (Menthol) 118 Ml Gel..ml. 118 Ml TP Pain Relieving Gel (Menthol) 120 Gm Gel..gram. 120 Gm TP Milk Of Magnesia (Magnesium Hydroxide) 2,400 Mg/10 Ml Oral.susp 2,400 Mg PO PRN DAILY Zoloft (Sertraline Hcl) 50 Mg Tablet 50 Mg PO DAILY Amlodipine Besylate 2.5 Mg Tablet 5 Mg PO DAILY Aspirin 325 Mg Tablet 1 Tab PO DAILY Atorvastatin Calcium 10 Mg Tablet 5 Mg PO HS Tylenol (Acetaminophen) 325 Mg Tablet 325 Mg PO QID Liquitears (Polyvinyl Alcohol) 15 Ml Drops 1 Drop OP PRN TID Potassium Chloride 20 Meq Tablet.er 20 Meq PO BID Tirosint (Levothyroxine Sodium) 75 Mcg Capsule 75 Mcg PO DAILY Century Adults 50+ Tablet (Multivits-Min/Fa/Lycopene/Lut) 1 Each Tablet 1 Each PO DAILY Allopurinol 300 Mg Tablet 300 Mg PO DAILY Vitals/I & O Vital Sign - Last 24 Hours 03/16/17 03/16/17 03/16/17 03/16/17 11:00 15:00 17:18 17:19 Temp 96.1 97.7 96.1 97.7 Pulse 80 54 90 Resp 17 17 15 14 B/P (MAP) 146/63 (90) 156/62 (93) Pulse Ox 97 96 93 95 O2 Delivery Room Air Room Air Nasal Cannula Nasal Cannula O2 Flow Rate 3.0 3.0 03/16/17 03/16/17 03/16/17 03/16/17 18:00 18:15 18:15 18:30 Pulse 70 B/P (MAP) 137/71 (93) 122/57 (78) 153/75 (101) O2 Delivery Room Air 03/16/17 03/16/17 03/16/17 03/16/17 18:45 19:00 19:15 19:17 Temp 97.7 97.7 Pulse 72 61 76 Resp 18 B/P (MAP) 148/65 (92) 140/65 (90) 138/70 (92) 150/69 (96) Pulse Ox 94 O2 Delivery Room Air 03/16/17 03/16/17 03/16/17 03/16/17 19:45 20:15 20:30 20:45 Pulse 62 62 66 B/P (MAP) 135/62 (86) 135/62 (86) 154/73 (100) O2 Delivery Room Air 03/16/17 03/16/17 03/17/17 21:15 22:20 03:40 Temp 98.5 98.2 98.5 98.2 Pulse 62 60 60 Resp 18 16 B/P (MAP) 138/63 (88) 141/63 (89) 121/58 (79) Pulse Ox 95 97 O2 Delivery Room Air Room Air Intake and Output 03/16/17 03/16/17 03/17/17 15:00 23:00 07:00 Intake Total 125 ml Balance 125 ml HAYLEY ESTRADA MD March 17, 2017 08:38
[2017-03-17] MEDS: MULTIVITAMIN with MINERAL TABLET. PO SCH (09:43)
[2017-03-17] MEDS: ASPIRIN 325 MG TABLET PO SCH (09:43)
[2017-03-17] MEDS: ACETAMINOPHEN 325 MG TABLET. PO SCH ×4 (09:43→20:38)
[2017-03-17] MEDS: SERTRALINE 50 MG TABLET. PO SCH (09:43)
[2017-03-17] MEDS: amLODIPine BESYLATE 5 MG TABLET PO SCH (09:44)
[2017-03-17] MEDS: ALLOPURINOL 300 MG TABLET. PO SCH (09:44)
[2017-03-17] MEDS: levETIRAcetam 500 MG TABLET PO SCH ×2 (09:44→20:38)
[2017-03-17 11:00] VITALS: BP 122/69
--- NOTE | 2017-03-17 12:33 | RAD ---
Examination: Single frontal view of the chest. History: History of pacemaker placement comparison: 03/16/2017 Findings: Left-sided cardiac pacer is unchanged. The cardiomediastinal silhouette grossly appears unremarkable. There is no acute infiltrate or visualize pneumothorax and identified. Impression: No acute cardiopulmonary findings.
[2017-03-17 15:00] VITALS: BP 154/57
--- NOTE | 2017-03-17 17:39 | CARD ---
APPROVED REPORT PROCEDURES Insertion Dual Chamber Pacemaker CONCLUSION [facility] PROCEDURE Patient Name: Elke Ferro Number: [id number] Date of : 1930Patient Status: Admitted Inpatient Attending Doctor: Taurus Robledo [facility] Number: [id number] PROCEDURE NOTE PROCEDURE Procedure PROCEDURE NOTE Procedure: Insertion of dual-chamber permanent pacemaker Preoperative diagnosis: Bradycardia Postoperative diagnosis: The same Procedure note: After obtaining informed consent the patient was brought to the [facility]. The patient received IV antibiotics as per protocol. The left shoulder area was prepped and draped in the usual fashion and the area was infiltrated with Xylocaine to obtain topical anesthesia. The skin was then incised. Bleeders were cauterized. With blunt dissection I then advanced all the way down to the fascia and then created a pocket. A 4 x 4 wetted with antibiotic solution was then placed in the pocket. Using Seldinger technique a peel-away sheath was then inserted into the left subclavian with a 2 guid ewire technique. Over one of the wires a peel-away sheath was position and then the dilator and guidewire were removed . A pacing lead was then advanced all the way to the RA and then across the tricuspid valve into the RV once I was satisfied with the positioning in the RV and we had checked the sensing as well as the pacing thresholds the lead was then secured in place. Over the remaining guidewire and another peel-away sheath was advanced and then the dilator and the g uidewire were removed. A pacing lead was then advanced all the way to the RA and then with a J shaped stylet were able to manipulate the lead until I was satisfied with the positioning and the act mikki-fixation device was deployed. We then checked the sensing and pacing thresholds and found them to be acceptable. After verifying the identity of each one of the pacing leads they were connected to the [employer] MRI compatible dual-chamber generator. The pacing leads had been sutured in place. The 4 x 4 was then removed from the pocket and the whole area was irrigated with antibiotic solution. The leads and the pacemaker generator were then placed in the pocket and the pocket was closed with 3 layers of running sutures. The skin edges were then approximated with Dermabond. After the Dermabond was dry a dressing was applied to the area. The patient was then transferred to her room in satisfactory condition after tolerating the procedure rather well. Further workup and treatment as per YAIMA Saldivar MDMay 2016 19:38
[2017-03-17 19:40] VITALS: BP 166/58
[2017-03-17] MEDS: ATORVASTATIN CALCIUM 10 MG TABLET. PO SCH (20:38)
[2017-03-17 23:45] VITALS: BP 153/63
[2017-03-18 03:20] VITALS: BP 167/60
[2017-03-18] MEDS: LEVOTHYROXINE 75 MCG TABLET PO SCH (05:58)
[2017-03-18 07:00] VITALS: BP 167/86
[2017-03-18] MEDS: ALLOPURINOL 300 MG TABLET. PO SCH (08:30)
[2017-03-18] MEDS: MULTIVITAMIN with MINERAL TABLET. PO SCH (08:30)
[2017-03-18] MEDS: ACETAMINOPHEN 325 MG TABLET. PO SCH (08:30)
[2017-03-18] MEDS: levETIRAcetam 500 MG TABLET PO SCH (08:31)
[2017-03-18] MEDS: SERTRALINE 50 MG TABLET. PO SCH (08:31)
[2017-03-18] MEDS: ASPIRIN 325 MG TABLET PO SCH (08:31)
[2017-03-18] MEDS: amLODIPine BESYLATE 5 MG TABLET PO SCH (08:33)
--- NOTE | 2017-03-18 10:37 | PDOC ---
PROGRESS NOTES Subjective Subjective feels better with less pacemaker related pain. blood pressure is high and will start losartan. I believe she had a quinapril induced cough in past. discussed that she will be transferred to SNF today. Objective Objective Vital Signs Date Time Temp Pulse Resp B/P (MAP) Pulse Ox O2 Delivery O2 Flow Rate FiO2 03/18/17 08:33 66 170/78 03/18/17 08:00 Room Air 03/18/17 07:00 98.6 25 96 98.6 03/16/17 17:19 3.0 Intake and Output 03/18/17 06:59 Intake Total 110 ml Output Total 1750 ml Balance -1640 ml Intake Oral 110 ml Output Urine Total 1750 ml # Voids 2 Physical Exam Abdomen: Soft Heart: Regular rate, Normal S1, Normal S2 Extremities: No edema General: Alert HEENT: Atraumatic Lungs: Clear to auscultation Neuro: Normal speech Psych/Mental Status: Mood NL Skin: No rashes, Other (dressing dry over pacemaker. bruises left arm due to shoulder immobilizer) Assessment Assessment Problems Near syncope due to sick sinus syndrome. pacemaker placed 2. sick sinus syndrome. 3. Hypertension. 4. Hyperlipidemia. 5. Hypothyroidism. 6. Hypokalemia. resolved 7. Epilepsy. Medical Problems: (1) Status post fall Status: Acute (2) Syncope Status: Acute Plan Plan of Care start losartan and continue amlodipine dismiss today to SNF Comment Review of Relevant I have reviewed the following items toribio (where applicable) has been applied. Labs Laboratory Tests Test 03/17/17 03:25 03/17/17 03:55 Sodium Level 143 mmol/L (136-145) Potassium Level 3.9 mmol/L (3.5-5.1) Chloride Level 107 mmol/L (98-107) Carbon Dioxide Level 26 mmol/L (21-32) Anion Gap 10 (6-14) Blood Urea Nitrogen 15 mg/dL (7-20) Creatinine 0.9 mg/dL (0.6-1.0) Estimated GFR (Cockcroft-Gault) 59.1 Glucose Level 89 mg/dL (70-99) Calcium Level 9.1 mg/dL (8.5-10.1) White Blood Count 6.0 x10^3/uL (4.0-11.0) Red Blood Count 3.70 x10^6/uL (3.50-5.40) Hemoglobin 12.1 g/dL (12.0-15.5) Hematocrit 37.4 % (36.0-47.0) Mean Corpuscular Volume 101 fL (79-100) Mean Corpuscular Hemoglobin 33 pg (25-35) Mean Corpuscular Hemoglobin Concent 32 g/dL (31-37) Red Cell Distribution Width 14.9 % (11.5-14.5) Platelet Count 180 x10^3/uL (140-400) Neutrophils (%) (Auto) 68 % (31-73) Lymphocytes (%) (Auto) 24 % (24-48) Monocytes (%) (Auto) 4 % (0-9) Eosinophils (%) (Auto) 4 % (0-3) Basophils (%) (Auto) 0 % (0-3) Neutrophils # (Auto) 4.1 x10^3uL (1.8-7.7) Lymphocytes # (Auto) 1.4 x10^3/uL (1.0-4.8) Monocytes # (Auto) 0.2 x10^3/uL (0.0-1.1) Eosinophils # (Auto) 0.2 x10^3/uL (0.0-0.7) Basophils # (Auto) 0.0 x10^3/uL (0.0-0.2) Medications Current Medications Ondansetron HCl (Zofran) 4 mg PRN Q8HRS PRN IV NAUSEA/VOMITING Last administered on 03/15/17 02:02; Start 03/15/17 at 01:45; Stop 03/16/17 at 01:44 ; Status DC Acetaminophen (Tylenol) 650 mg PRN Q4HRS PRN PO FEVER Last administered on 03/15 02:02; Start 03/15/17 at 01:45; Stop 03/15/17 at 03:50; Status DC Potassium Chloride (Klor-Con) 40 meq 1X ONCE PO Last administered on 02:49; Start 03/15/17 at 03:00; Stop 03/15/17 at 03:01; Status DC Acetaminophen (Tylenol) 325 mg QID PO Last administered on 03/18/17 08:30; Start 03/15/17 at 09:00 Allopurinol (Zyloprim) 300 mg DAILY PO Last administered on 03/18/17 08:30; Start 03/15/17 at 09:00 Amlodipine Besylate (Norvasc) 5 mg DAILY PO Last administered on 03/18/17 08: 33; Start 03/15/17 at 09:00 Aspirin (Shahram Aspirin) 325 mg DAILY PO Last administered on 03/18/17 08:31; Start 03/15/17 at 09:00 Atorvastatin Calcium (Lipitor) 5 mg HS PO Last administered on 03/17/17 20:38 ; Start 03/15/17 at 21:00 Levetiracetam (Keppra) 500 mg BID PO Last administered on 03/18/17 08:31; Start 03/15/17 at 09:00 Sertraline HCl (Zoloft) 50 mg DAILY PO Last administered on 03/18/17 08:31; Start 03/15/17 at 09:00 Levothyroxine Sodium (Synthroid) 75 mcg DAILY07 PO Last administered on 05:58; Start 03/15/17 at 07:00 Magnesium Hydroxide (Milk Of Magnesia) 2,400 mg PRN DAILY PRN PO CONSTIPATION; Start 03/15/17 at 04:00 Multivitamins (Thera M Plus) 1 tab DAILY PO Last administered on 03/18/17 08: 30; Start 03/15/17 at 09:00 Acetaminophen (Tylenol) 650 mg PRN Q4HRS PRN PO MILD PAIN / TEMP Last administered on 03/16/17 23:14; Start 03/15/17 at 03:45 Potassium Chloride (KCl Oral Soln) 40 meq 1X ONCE PO Last administered on 03/15 11:30; Start 03/15/17 at 10:30; Stop 03/15/17 at 10:31; Status DC Vancomycin HCl 1.25 gm/Sodium Chloride 250 ml @ 166.667 mls/hr 1X ONCE IV ; Start 03/16/17 at 15:00; Stop 03/16/17 at 16:29; Status Cancel Vancomycin HCl 1 gm/Sodium Chloride 250 ml @ 250 mls/hr 1X ONCE IV Last administered on 03/16/17 16:45; Start 03/16/17 at 15:00; Stop 03/16/17 at 15:59 ; Status DC Lidocaine/ Epinephrine (Xylocaine 2%-Epi 1:100,000) 20 ml STK-MED ONCE .ROUTE ; Start 03/16/17 at 16:09; Stop 03/16/17 at 16:10; Status DC Bacitracin 16211 unit/Sodium Chloride 250 ml @ 250 mls/hr 1X PERIOP ONCE IRR Last administered on 03/16/17 16:44; Start 03/16/17 at 06:00; Stop 03/16/17 at 16:12; Status DC Midazolam HCl (Versed) 2 mg STK-MED ONCE .ROUTE ; Start 03/16/17 at 16:22; Stop 03/16/17 at 16:23; Status DC Fentanyl Citrate (Fentanyl 2ml Vial) 100 mcg STK-MED ONCE .ROUTE ; Start at 16:22; Stop 03/16/17 at 16:23; Status DC Midazolam HCl (Versed) 1 mg 1X ONCE IV Last administered on 03/16/17 17:17; Start 03/16/17 at 16:45; Stop 03/16/17 at 16:46; Status DC Fentanyl Citrate (Fentanyl 2ml Vial) 50 mcg 1X ONCE IV Last administered on 17:18; Start 03/16/17 at 16:45; Stop 03/16/17 at 16:46; Status DC Lidocaine/ Epinephrine (Xylocaine 2%-Epi 1:100,000) 40 ml 1X ONCE IJ Last administered on 03/16/17 16:45; Start 03/16/17 at 16:45; Stop 03/16/17 at 16:46 ; Status DC Iohexol (Omnipaque 300 Mg/ml) 100 ml STK-MED ONCE .ROUTE ; Start 03/16/17 at 16: 38; Stop 03/16/17 at 16:39; Status DC Iohexol (Omnipaque 300 Mg/ml) 100 ml 1X ONCE IART Last administered on 17:19; Start 03/16/17 at 17:00; Stop 03/16/17 at 17:01; Status DC Info (Do NOT chart on this entry -- for MONITORING) 1 each PRN DAILY PRN MC SEE COMMENTS; Start 03/16/17 at 17:00; Stop 03/18/17 at 16:59 Vancomycin HCl 1 gm/Sodium Chloride 250 ml @ 250 mls/hr 1X ONCE IV Last administered on 03/17/17t 05:16; Start 03/17/17 at 05:00; Stop 03/17/17 at 05:59 ; Status DC Active Scripts Active Lasix (Furosemide) 40 Mg Tablet 40 Mg PO DAILY Keppra (Levetiracetam) 500 Mg Tablet 500 Mg PO BID Reported Acetaminophen 500 Mg Tablet 650 Mg PO PRN Q4HRS PRN Biofreeze (Menthol) 118 Ml Gel..ml. 118 Ml TP Pain Relieving Gel (Menthol) 120 Gm Gel..gram. 120 Gm TP Milk Of Magnesia (Magnesium Hydroxide) 2,400 Mg/10 Ml Oral.susp 2,400 Mg PO PRN DAILY Zoloft (Sertraline Hcl) 50 Mg Tablet 50 Mg PO DAILY Amlodipine Besylate 2.5 Mg Tablet 5 Mg PO DAILY Aspirin 325 Mg Tablet 1 Tab PO DAILY Atorvastatin Calcium 10 Mg Tablet 5 Mg PO HS Tylenol (Acetaminophen) 325 Mg Tablet 325 Mg PO QID Liquitears (Polyvinyl Alcohol) 15 Ml Drops 1 Drop OP PRN TID Potassium Chloride 20 Meq Tablet.er 20 Meq PO BID Tirosint (Levothyroxine Sodium) 75 Mcg Capsule 75 Mcg PO DAILY Century Adults 50+ Tablet (Multivits-Min/Fa/Lycopene/Lut) 1 Each Tablet 1 Each PO DAILY Allopurinol 300 Mg Tablet 300 Mg PO DAILY Vitals/I & O Vital Sign - Last 24 Hours 03/17/17 03/17/17 03/17/17 03/17/17 11:00 15:00 19:40 20:24 Temp 98.5 98.7 98.7 98.5 98.7 98.7 Pulse 60 61 63 Resp 20 18 16 B/P (MAP) 122/69 (86) 154/57 (89) 166/58 (94) Pulse Ox 94 93 93 O2 Delivery Room Air Room Air Room Air Room Air 03/17/17 03/18/17 03/18/17 03/18/17 23:45 03:20 07:00 08:00 Temp 98.1 98.9 98.6 98.1 98.9 98.6 Pulse 67 63 63 Resp 20 18 25 B/P (MAP) 153/63 (93) 167/60 (95) 167/86 (113) Pulse Ox 94 94 96 O2 Delivery Room Air Room Air Room Air Room Air 03/18/17 08:33 Pulse 66 B/P (MAP) 170/78 Intake and Output 03/17/17 03/17/17 03/18/17 14:59 22:59 06:59 Intake Total 60 ml 50 ml Output Total 300 ml 700 ml 750 ml Balance -300 ml -640 ml -700 ml HAYLEY ESTRADA MD March 18, 2017 10:37
--- NOTE | 2017-03-18 10:43 | DISCH ---
DISCHARGE INSTRUCTIONS Condition on Discharge Condition on Discharge: Stable Activity After Discharge Activity Instructions for Disc: Other, see below Other activity instructions: ambulate with assiistance. must wear left shoulder immobilizer. PT and OT Diet after Discharge Diet after Discharge: Regular Contacting the DRCarol after DC Call your doctor for: If your condition worsens Follow-Up Follow up with: dr. estrada 1 week after dismissal from SNF Follow Up With: dr. Wen in 2 weeks HAYLEY ESTRADA MD March 18, 2017 10:43
--- NOTE | 2017-03-18 10:48 | PDOC ---
Provider Note Provider Note discharge summary dictated # [id number] HAYLEY ESTRADA MD March 18, 2017 10:48
[2017-03-18 10:59] VITALS: BP 167/86
[2017-03-18] MEDS ORDERED: LOSARTAN POTASSIUM 50 MG TABLET. PO SCH (11:00)
[2017-03-18 11:21] VITALS: BP 167/86
--- NOTE | 2017-03-18 11:58 | DS ---
DATE OF DISCHARGE: 03/18/2017 CONSULTANTS: Dr. Wen and Dr. Palm. PROCEDURE: Placement of a permanent pacemaker. FINAL DIAGNOSES: 1. Near syncope due to sick sinus syndrome. 2. Sinus bradycardia due to sick sinus syndrome. 3. Recent falls, one of which was due to near syncope. 4. Hypertension. 5. Hyperlipidemia. 6. Hypothyroidism. 7. Hypokalemia. 8. Epilepsy. HOSPITAL COURSE: The patient is an 87-year-old white female who lives in assisted living facility, [facility] one week prior to admission with a history of hypertension, hyperlipidemia, hypothyroidism and epilepsy who sustained 2 falls. In one of the falls, she had a near syncope and she was complaining of left shoulder and left arm pain. She had a near syncopal episode. The patient went to the [facility] Emergency Room where a chest x-ray and CAT scan of the head and x-ray of the left shoulder were negative for fractures. She was noted to have a heart rate in the high 40s and an EKG was done and she was seen by Dr. Wen in consultation who recommended permanent pacemaker for sick sinus syndrome. She was seen in consultation by Dr. Palm who placed the permanent pacemaker. She tolerated the procedure well and hospital course was complicated by hypokalemia, treated with potassium chloride supplementation with normalization of the serum potassium. Her blood pressure was elevated. Her amlodipine was continued on losartan. She was started on losartan 50 mg every day. She has intolerance to quinapril in the past, I believe due to a SUSAN-induced cough. The patient is a [id number]-fgwoqijhtow. She does have a seizure disorder for which she takes Keppra and she has significant mobility and self-care deficits due to debility and presently has a left arm immobilizer due to her permanent pacemaker placement. By the way, she had an x-ray of her left shoulder and left humerus, which showed no fracture. She will be [facility] to a pen[facility] later today on Tylenol 325 mg q.i.d. for 1 week and then Tylenol 650 mg every 4 hours p.r.n., allopurinol 300 mg every day, aspirin 325 mg every day, atorvastatin 5 mg at bedtime, losartan 50 mg p.o. daily, levothyroxine 75 mcg every day, multiple vitamin with minerals once a day, sertraline 50 mg every day, amlodipine 5 mg every day, Keppra 500 mg b.i.d. and she is a [id number]-bergsukgvqw. She will be dismissed on a regular diet, receiving physical and occupational therapy that has been ordered prior to Dr. Robledo one week after she is [facility] and office visit with Dr. Wen in 2 weeks from now and she wear a left shoulder immobilizer. Get a basic metabolic profile 1 week at the [facility] and as mentioned, she is a [id number]. HAYLEY ROBLEDO MD DR: LAVELL/deborah JOB#: [id number] / [id number]
--- NOTE | 2017-03-18 17:54 | PDOC ---
Provider Note Provider Note The patient was seen on the but no note written. The pacemaker was functioning well with a paced and V sensed. The rate is set at 60 bpm. This should be adequate. She will be going to a snf facility on the . [facility] TRINH GONZALEZ MD March 18, 2017 17:54
== END 2017-03-18 13:00 | DRG 243 ==
LOC: ER 23:33 → 5 NORTH 03-15 01:40 → 2 NORTH 03-16 17:31
PROVIDERS: ADMIT Internal Medicine; ATTEND Internal Medicine
PROC: 0JH606Z Insertion of Pacemaker, Dual Chamber into Chest Subcutaneous Tissue and Fascia, Open Approach (ICD-10-PCS; principal; 2017-03-16)
PROC: 02H63JZ Insertion of Pacemaker Lead into Right Atrium, Percutaneous Approach (ICD-10-PCS; 2017-03-16)
PROC: 02HK3JZ Insertion of Pacemaker Lead into Right Ventricle, Percutaneous Approach (ICD-10-PCS; 2017-03-16)
DX: I49.5 Sick sinus syndrome (principal); I47.1 Supraventricular tachycardia; E44.1 Mild protein-calorie malnutrition; R55 Syncope and collapse; E03.9 Hypothyroidism, unspecified; E78.00 Pure hypercholesterolemia, unspecified; E78.5 Hyperlipidemia, unspecified; E87.6 Hypokalemia; F03.90 Unspecified dementia, unspecified severity, without behavioral disturbance, psychotic disturbance, mood disturbance, and anxiety; G40.909 Epilepsy, unspecified, not intractable, without status epilepticus; I10 Essential (primary) hypertension; I95.1 Orthostatic hypotension; M10.9 Gout, unspecified; R03.0 Elevated blood-pressure reading, without diagnosis of hypertension; R29.6 Repeated falls; W19.XXXA Unspecified fall, initial encounter; M19.90 Unspecified osteoarthritis, unspecified site; F32.9 Major depressive disorder, single episode, unspecified; Z66 Do not resuscitate; Z79.82 Long term (current) use of aspirin; Z79.899 Other long term (current) drug therapy; Z86.718 Personal history of other venous thrombosis and embolism; Z86.73 Personal history of transient ischemic attack (TIA), and cerebral infarction without residual deficits; Z88.0 Allergy status to penicillin; Z90.710 Acquired absence of both cervix and uterus; Z88.2 Allergy status to sulfonamides; Z88.8 Allergy status to other drugs, medicaments and biological substances; Z88.6 Allergy status to analgesic agent; Z91.041 Radiographic dye allergy status
CPT/HCPCS: 33208; 36415; 70450; 71010; 73030; 73060; 80048; 80053; 80177; 81001; 83735; 83880; 84484; 85027; 85610; 87641; 93005; 96374; C1785; C1892; C1898; J2250; J2405; J3010; J3370; J3490; J7050; Q9967; 97116; 97530; 99285-25; J7030

== ENCOUNTER 2017-03-29 10:10 | Emergency (ER) | payer OTHER ==
[~2017-03-29] VITALS: Ht 165.1 cm; Wt 77.1 kg
[~2017-03-29 10:10] MED LIST changes: +ACET500T68 PO; +MENT118G TP; +[UNRECOGNIZED DRUG - CODE] TP
--- NOTE | 2017-03-29 11:01 | RAD ---
Exam: AP portable chest. History: Syncope, left shoulder and arm pain. Comparison: 03/17/2017. Findings: The heart and mediastinal structures are within normal limits for size. Lungs are without infiltrate. No pneumothorax or pleural effusion is appreciated. Aortic atherosclerosis is seen. Dual-lead pacemaker by left subclavian approach is unchanged Impression: 1. No acute cardiopulmonary process.
[2017-03-29 11:06] LABS: BASO # 0.1 x10^3/uL (0.0-0.2); BASO % 1 % (0-3); EOS % 4 % (0-3); HEMATOCRIT 36.6 % (36.0-47.0); HEMOGLOBIN 12.4 g/dL (12.0-15.5); LYMPH # 2.7 x10^3/uL (1.0-4.8); LYMPH % 36 % (24-48); MEAN CORPUSCULAR HEMOGLOBIN 34 pg (25-35); MEAN CORPUSCULAR HGB CONC 34 g/dL (31-37); MEAN CORPUSCULAR VOLUME 99 fL (79-100); MONO % 6 % (0-9); NEUT % 53 % (31-73); PLATELET COUNT 231 x10^3/uL (140-400); RED BLOOD COUNT 3.69 x10^6/uL (3.50-5.40); RED CELL DISTRIBUTION WIDTH 14.9 % (11.5-14.5); WHITE BLOOD COUNT 7.5 x10^3/uL (4.0-11.0)
[2017-03-29 11:19] LABS: INR 1.1 (0.8-1.1); PROTHROMBIN TIME PATIENT 13.7 SEC (11.7-14.0)
--- NOTE | 2017-03-29 11:25 | PHYS DOC ---
Past Medical History Past Medical History: CVA, Depression, DVT, High Cholesterol, Hypertension, Hypothyroid, TIA Additional Past Medical Histor: Gout, osteoarthritis Past Surgical History: Hysterectomy, Other Additional Past Surgical Histo: bladder; "blood clot stent" Alcohol Use: None Drug Use: None Adult General Chief Complaint Chief Complaint: UPPER EXTREMITY PAIN HPI HPI Patient is a 87 year old female who presents with arm pain. She had pacemaker was placed approximately [address] Wen. Her whole arm was used and was In a sling. 2 days ago she noticed a knot and worsening pain in her temperature me. She denies any chest pain shortness of breath nausea vomiting. Review of Systems Review of Systems Constitutional: Denies fever or chills [] Eyes: Denies change in visual acuity, redness, or eye pain [] HENT: Denies nasal congestion or sore throat [] Respiratory: Denies cough or shortness of breath [] Cardiovascular: No additional information not addressed in HPI [] GI: Denies abdominal pain, nausea, vomiting, bloody stools or diarrhea [] : Denies dysuria or hematuria [] Musculoskeletal: Denies back pain or joint pain [] Integument: Denies rash or skin lesions [] Neurologic: Denies headache, focal weakness or sensory changes [] Endocrine: Denies polyuria or polydipsia [] Allergies Allergies Allergies Coded Allergies Type Severity Reaction Last Updated Verified Penicillins Allergy Intermediate Rash 09/28/16 Yes Sulfa (Sulfonamide Antibiotics) Allergy Intermediate 02/09/17 Yes codeine Allergy Intermediate Rash 09/28/16 Yes iodine Allergy Intermediate 02/09/17 Yes oxybutynin Allergy Intermediate 02/09/17 Yes quinapril HCl Allergy Intermediate Rash 09/28/16 Yes tramadol Allergy Intermediate 02/09/17 Yes Physical Exam Physical Exam Constitutional: Well developed, well nourished, no acute distress, non-toxic appearance. [] HENT: Normocephalic, atraumatic, bilateral external ears normal, oropharynx moist, no oral exudates, nose normal. [] Eyes: PERRLA, EOMI, conjunctiva normal, no discharge. [] Neck: Normal range of motion, no tenderness, supple, no stridor. [] Cardiovascular:Heart rate regular rhythm, no murmur [] Lungs & Thorax: Bilateral breath sounds clear to auscultation [] Abdomen: Bowel sounds normal, soft, no tenderness, no masses, no pulsatile masses. [] Skin: Warm, dry, no erythema, no rash. [] Back: No tenderness, no CVA tenderness. [] Extremities: Palpation over the left upper extremity with a 2 x 2 centimeter mass, no cyanosis, no clubbing, ROM intact, no edema. Radial pulse 2+ the left upper extremity. Neurologic: Alert and oriented X 3, normal motor function, normal sensory function, no focal deficits noted. [] Psychologic: Affect normal, judgement normal, mood normal. [] Current Patient Data Vital Signs Vital Signs Date Time Temp Pulse Resp B/P (MAP) Pulse Ox O2 Delivery O2 Flow Rate FiO2 03/29/17 13:40 63 19 161/72 (101) 95 Room Air 03/29/17 10:10 97.6 97.6 Lab Values Laboratory Tests Test 03/29/17 10:20 03/29/17 10:56 03/29/17 11:30 03/29/17 13:05 White Blood Count 7.5 x10^3/uL (4.0-11.0) Red Blood Count 3.69 x10^6/uL (3.50-5.40) Hemoglobin 12.4 g/dL (12.0-15.5) Hematocrit 36.6 % (36.0-47.0) Mean Corpuscular Volume 99 fL (79-100) Mean Corpuscular Hemoglobin 34 pg (25-35) Mean Corpuscular Hemoglobin Concent 34 g/dL (31-37) Red Cell Distribution Width 14.9 % (11.5-14.5) H Platelet Count 231 x10^3/uL (140-400) Neutrophils (%) (Auto) 53 % (31-73) Lymphocytes (%) (Auto) 36 % (24-48) Monocytes (%) (Auto) 6 % (0-9) Eosinophils (%) (Auto) 4 % (0-3) H Basophils (%) (Auto) 1 % (0-3) Neutrophils # (Auto) 4.0 x10^3uL (1.8-7.7) Lymphocytes # (Auto) 2.7 x10^3/uL (1.0-4.8) Monocytes # (Auto) 0.4 x10^3/uL (0.0-1.1) Eosinophils # (Auto) 0.3 x10^3/uL (0.0-0.7) Basophils # (Auto) 0.1 x10^3/uL (0.0-0.2) Prothrombin Time 13.7 SEC (11.7-14.0) Prothrombin Time INR 1.1 (0.8-1.1) Sodium Level 143 mmol/L (136-145) Potassium Level 4.3 mmol/L (3.5-5.1) Chloride Level 107 mmol/L (98-107) Carbon Dioxide Level 29 mmol/L (21-32) Anion Gap 7 (6-14) Blood Urea Nitrogen 19 mg/dL (7-20) Creatinine 0.9 mg/dL (0.6-1.0) Estimated GFR (Cockcroft-Gault) 59.1 Glucose Level 104 mg/dL (70-99) H Calcium Level 9.1 mg/dL (8.5-10.1) Magnesium Level 2.1 mg/dL (1.8-2.4) Total Bilirubin 0.3 mg/dL (0.2-1.0) Direct Bilirubin 0.2 mg/dL (0.0-0.2) Aspartate Amino Transferase (AST) 26 U/L (15-37) Alanine Aminotransferase (ALT) 19 U/L (14-59) Alkaline Phosphatase 84 U/L (46-116) Creatine Kinase 42 U/L (26-192) Creatine Kinase MB (Mass) 0.6 ng/mL (0.0-3.6) Creatine Kinase MB Relative Index % (0-4) Troponin I Quantitative < 0.017 ng/mL (0.000-0.055) PP-Cmx-O-Type Natriuretic Peptide 400 pg/mL (0-449) Total Protein 6.9 g/dL (6.4-8.2) Albumin 3.1 g/dL (3.4-5.0) L Lipase 125 U/L (73-393) Thyroid Stimulating Hormone (TSH) 1.965 uIU/mL (0.358-3.74) Urine Collection Type Unknown Urine Color Yellow Urine Clarity Clear Urine pH 6.5 Urine Specific Bypro 1.025 Urine Protein Negative mg/dL (NEG-TRACE) Urine Glucose (UA) Negative mg/dL (NEG) Urine Ketones (Stick) Negative mg/dL (NEG) Urine Blood Negative (NEG) Urine Nitrite Negative (NEG) Urine Bilirubin Negative (NEG) Urine Urobilinogen Dipstick 0.2 mg/dL (0.2 mg/dL) Urine Leukocyte Esterase Negative (NEG) Urine RBC 0 /HPF (0-2) Urine WBC 0 /HPF (0-4) Urine Squamous Epithelial Cells Mod /LPF Urine Bacteria Few /HPF (0-FEW) Urine Mucus Slight /LPF Laboratory Tests 03/29/17 10:20 Laboratory Tests 03/29/17 11:30 EKG EKG EKG shows sinus rhythm with atrial per mature compresses, left axis deviation, QTC 463 ms, no ST elevations or depressions noted, EKG is similar to one performed on March 14, 2017, as interpreted by me. Radiology/Procedures Radiology/Procedures [address] [address] IMAGING REPORT Signed PATIENT: PATRICIO TAYLOR ACCOUNT: [id number] : 1930 LOCATION: ER AGE: 87 SEX: F EXAM STATUS: REG ER ORD. PHYSICIAN: DENISA CHRISTIAN MD REASON: pain PROCEDURE: VENOUS UPPER EXTREMITY LEFT Left upper extremity venous Doppler ultrasound History: Left arm pain since fall. Comparison: None. Procedure: Color Doppler, spectral Doppler, and grayscale images are obtained with and without compression of the upper extremity veins. Imaging included the internal jugular, subclavian, axillary, brachial, cephalic, ulnar, radial, and basilic veins. Findings: There is normal flow and compressibility of all visualized vein segments. No venous thrombosis is identified. Grayscale imaging of the left upper arm in the area of swelling demonstrates a mildly concave fluid collection which measures 3.5 x 1.6 x 3.7 cm and may represent hematoma. Impression: 1. No evidence of left upper extremity venous thrombosis. 2. Fluid collection in the left upper arm which, given history of fall, may represent hematoma. DICTATED and SIGNED BY: HAYLEY PENA MD DATE: 03/29/17 1051 CC: DENISA CHRISTIAN MD; HAYLEY ESTRADA MD ~ [address] [place] [address] IMAGING REPORT Signed PATIENT: PATRICIO TAYLOR ACCOUNT: [id number] : 1930 LOCATION: ER AGE: 87 SEX: F EXAM [id number] STATUS: REG ER ORD. PHYSICIAN: DENISA CHRISTIAN MD REASON: pain PROCEDURE: HUMERUS LEFT; SHOULDER 2+V LEFT Indication persistent pain associated with a fall 2 weeks previously. 2 AP views and 2Y views of the left shoulder were obtained. Additional AP and lateral imaging of the humerus were also obtained. No acute finding is seen. Significant degenerative changes about the shoulder are not seen particularly given the patient's age. The humerus appears unremarkable. DICTATED and SIGNED BY: RALPH DWYER MD DATE: 03/29/17 1206 CC: DENISA CHRISTIAN MD; HAYLEY ESTRADA MD ~ [facility] [address] [place] [address] IMAGING REPORT Signed PATIENT: PATRICIO TAYLOR ACCOUNT: [id number] : 1930 LOCATION: ER AGE: 87 SEX: F EXAM STATUS: PRE ER ORD. PHYSICIAN: DENISA CHRISTIAN MD REASON: syncopy PROCEDURE: PORTABLE CHEST 1V Exam: AP portable chest. History: Syncope, left shoulder and arm pain. Comparison: 03/17/2017. Findings: The heart and mediastinal structures are within normal limits for size. Lungs are without infiltrate. No pneumothorax or pleural effusion is appreciated. Aortic atherosclerosis is seen. Dual-lead pacemaker by left subclavian approach is unchanged Impression: 1. No acute cardiopulmonary process. DICTATED and SIGNED BY: HAYLEY PENA MD DATE: 03/29/17 1058 CC: DENISA CHRISTIAN MD; HAYLEY ESTRADA MD ~ Impressions: Left arm pain Course & Med Decision Making Course & Med Decision Making Pertinent Labs and Imaging studies reviewed. (See chart for details) Patient x-ray and ultrasound of left upper extremity did not show any acute abnormalities she likely has a hematoma over were she has fallen before. She is being discharged with Castine and instructed not to take any Tylenol with Castine. She is agreeable plan in addition to her daughter who is there during the entire examination. The being discharged in stable condition. There is return ER for chest pain shortness of breath or other concerns. Dr. Wen evaluated the patient as well. Dragon Disclaimer Dragon Disclaimer This electronic medical record was generated, in whole or in part, using a voice recognition dictation system. Departure Departure Impression: Primary Impression: Arm pain Disposition: 01 HOME, SELF-CARE Condition: STABLE Referrals: HAYLEY ESTRADA MD (PCP) Patient Instructions: Contusion Additional Instructions: Your x-rays and ultrasound of your arm did not show any abnormalities. Your being discharged home. You can use pain meds as needed. You being discharged with Castine which is a narcotic pain medicine. Castine contains Tylenol said do not take Tylenol when you're taking Castine. Return ER for worsening pain, fevers , shortness of breath or other concerns. Scripts Hydrocodone/Apap 5-325 (NORCO 5-325 TABLET) 1 Each Tablet 1 TAB PO Q4-6HRS Y for PAIN, #20 TAB Prov: DENISA CHRISTIAN MD 03/29/17 DENISA CHRISTIAN MD March 29, 2017 11:25
--- NOTE | 2017-03-29 11:33 | EKG ---
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
[2017-03-29 12:03] LABS: CALCIUM 9.1 mg/dL (8.5-10.1); CREATININE 0.9 mg/dL (0.6-1.0); GFR 59.1; POTASSIUM 4.3 mmol/L (3.5-5.1)
[2017-03-29 12:09] LABS: ALBUMIN 3.1 g/dL (3.4-5.0); DIRECT BILIRUBIN 0.2 mg/dL (0.0-0.2); MAGNESIUM 2.1 mg/dL (1.8-2.4); TOTAL BILIRUBIN 0.3 mg/dL (0.2-1.0); TOTAL PROTEIN 6.9 g/dL (6.4-8.2)
--- NOTE | 2017-03-29 12:12 | RAD ---
Indication persistent pain associated with a fall 2 weeks previously. 2 AP views and 2Y views of the left shoulder were obtained. Additional AP and lateral imaging of the humerus were also obtained. No acute finding is seen. Significant degenerative changes about the shoulder are not seen particularly given the patient's age. The humerus appears unremarkable.
[2017-03-29 12:17] LABS: CKMB MASS 0.6 ng/mL (0.0-3.6); CREATINE KINASE 42 U/L (26-192)
--- NOTE | 2017-03-29 12:22 | RAD ---
Left upper extremity venous Doppler ultrasound History: Left arm pain since fall. Comparison: None. Procedure: Color Doppler, spectral Doppler, and grayscale images are obtained with and without compression of the upper extremity veins. Imaging included the internal jugular, subclavian, axillary, brachial, cephalic, ulnar, radial, and basilic veins. Findings: There is normal flow and compressibility of all visualized vein segments. No venous thrombosis is identified. Grayscale imaging of the left upper arm in the area of swelling demonstrates a mildly concave fluid collection which measures 3.5 x 1.6 x 3.7 cm and may represent hematoma. Impression: 1. No evidence of left upper extremity venous thrombosis. 2. Fluid collection in the left upper arm which, given history of fall, may represent hematoma.
[2017-03-29 13:19] LABS: BILIRUBIN,URINE NEGATIVE (NEG); GLUCOSE,URINE NEGATIVE (NEG); NITRITE,URINE NEGATIVE (NEG); PH,URINE 6.5; PROTEIN,URINE NEGATIVE (NEG-TRACE); UROBILINOGEN,URINE 0.2 mg/dL (0.2 mg/dL)
[2017-03-29] MEDS ORDERED: HYDR-971 PO (13:21)
[2017-03-29 13:31] LABS: BACTERIA,URINE FEW /HPF (0-FEW); RBC,URINE 0 /HPF (0-2); SQUAMOUS EPITHELIAL CELL,UR MOD /LPF; WBC,URINE 0 /HPF (0-4)
[2017-03-29 13:40] VITALS: BP 161/72
== END 2017-03-29 13:55 | disposition home or self-care (01) ==
LOC: ER 10:10
DX: M79.602 Pain in left arm (principal); F32.9 Major depressive disorder, single episode, unspecified; E78.00 Pure hypercholesterolemia, unspecified; I10 Essential (primary) hypertension; E03.9 Hypothyroidism, unspecified; M19.90 Unspecified osteoarthritis, unspecified site; M10.9 Gout, unspecified; Z86.73 Personal history of transient ischemic attack (TIA), and cerebral infarction without residual deficits; Z95.0 Presence of cardiac pacemaker; Z88.5 Allergy status to narcotic agent; Z88.0 Allergy status to penicillin; Z88.2 Allergy status to sulfonamides; Z88.8 Allergy status to other drugs, medicaments and biological substances; Z88.6 Allergy status to analgesic agent; Z91.041 Radiographic dye allergy status
CPT/HCPCS: 36415; 71010; 73030; 73060; 80048; 80076; 81001; 82553; 83690; 83735; 83880; 84443; 84484; 85027; 85610; 93005; 93971; 99285-25

== ENCOUNTER 2017-07-11 12:04 | Emergency (ER) | payer OTHER ==
[~2017-07-11] VITALS: Ht 167.6 cm; Wt 77.1 kg
[~2017-07-11 12:04] MED LIST changes: -ASPI325T4 PO; +ASPI325T8 PO; +HYDR-971 PO; +[UNRECOGNIZED DRUG - CODE] TP; -[UNRECOGNIZED DRUG - CODE] TP
--- NOTE | 2017-07-11 12:26 | PHYS DOC ---
Past Medical History Past Medical History: CVA, Depression, DVT, High Cholesterol, Hypertension, Hypothyroid, TIA Additional Past Medical Histor: Gout, osteoarthritis Past Surgical History: Hysterectomy, Other Additional Past Surgical Histo: bladder; "blood clot stent" Alcohol Use: None Drug Use: None Adult General Chief Complaint Chief Complaint: ALTERED MENTAL STATUS [facility] HPI Patient is a 87 year old female presenting to the emergency department for evaluation of altered mental status. Patient lives at a intermediate and reportedly has dementia but staff and son say that she is more confused than usual. I tried getting a specific example and they said she usually would know the year but she does not know the year currently. Patient says that she is having no pain except for pain at attempted IV site. Son provides information that when she gets like this usually she is dehydrated. Review of Systems Review of Systems Constitutional: Denies fever or chills [] Eyes: Denies change in visual acuity, redness, or eye pain [] HENT: Denies nasal congestion or sore throat [] Respiratory: Denies cough or shortness of breath [] Cardiovascular: No additional information not addressed in HPI [] GI: Denies abdominal pain, nausea, vomiting, bloody stools or diarrhea [] : Denies dysuria or hematuria [] Musculoskeletal: Denies back pain or joint pain [] Integument: Denies rash or skin lesions [] Neurologic: Denies headache, focal weakness or sensory changes [] Current Medications Current Medications Current Medications Medications (Trade) Dose Ordered Sig/Flor Start Time Stop Time Status Last Admin Dose Admin Sodium Chloride 1,000 ml @ 1,000 mls/hr 1X ONCE 07/11/17 12:15 07/11/17 13:14 DC 07/11/17 13:20 1,000 MLS/HR Allergies Allergies Allergies Coded Allergies Type Severity Reaction Last Updated Verified Penicillins Allergy Intermediate Rash 09/28/16 Yes Sulfa (Sulfonamide Antibiotics) Allergy Intermediate 02/09/17 Yes codeine Allergy Intermediate Rash 09/28/16 Yes iodine Allergy Intermediate 02/09/17 Yes oxybutynin Allergy Intermediate 02/09/17 Yes quinapril HCl Allergy Intermediate Rash 09/28/16 Yes tramadol Allergy Intermediate 02/09/17 Yes Physical Exam Physical Exam Constitutional: Well developed, well nourished, no acute distress, non-toxic appearance. [] HENT: Normocephalic, atraumatic, bilateral external ears normal, oropharynx moist, no oral exudates, nose normal. [] Eyes: PERRLA, EOMI, conjunctiva normal, no discharge. [] Neck: Normal range of motion, no tenderness, supple, no stridor. [] Cardiovascular:Heart rate regular rhythm, no murmur [] Lungs & Thorax: Bilateral breath sounds clear to auscultation [] Abdomen: Bowel sounds normal, soft, no tenderness, no masses, no pulsatile masses. [] Skin: Warm, dry, no erythema, no rash. [] Back: No tenderness, no CVA tenderness. [] Extremities: No tenderness, no cyanosis, no clubbing, ROM intact, no edema. [] Neurologic: Alert and oriented X 2, normal motor function, normal sensory function, no focal deficits noted. [] Current Patient Data Vital Signs Vital Signs Date Time Temp Pulse Resp B/P (MAP) Pulse Ox O2 Delivery O2 Flow Rate FiO2 07/11/17 13:08 72 18 157/69 (98) 95 Room Air 07/11/17 12:10 97.7 97.7 Lab Values Laboratory Tests Test 07/11/17 13:05 07/11/17 13:20 White Blood Count 6.5 x10^3/uL (4.0-11.0) Red Blood Count 4.00 x10^6/uL (3.50-5.40) Hemoglobin 12.8 g/dL (12.0-15.5) Hematocrit 39.3 % (36.0-47.0) Mean Corpuscular Volume 98 fL (79-100) Mean Corpuscular Hemoglobin 32 pg (25-35) Mean Corpuscular Hemoglobin Concent 33 g/dL (31-37) Red Cell Distribution Width 14.6 % (11.5-14.5) H Platelet Count 169 x10^3/uL (140-400) Neutrophils (%) (Auto) 53 % (31-73) Lymphocytes (%) (Auto) 36 % (24-48) Monocytes (%) (Auto) 7 % (0-9) Eosinophils (%) (Auto) 4 % (0-3) H Basophils (%) (Auto) 1 % (0-3) Neutrophils # (Auto) 3.4 x10^3uL (1.8-7.7) Lymphocytes # (Auto) 2.4 x10^3/uL (1.0-4.8) Monocytes # (Auto) 0.4 x10^3/uL (0.0-1.1) Eosinophils # (Auto) 0.2 x10^3/uL (0.0-0.7) Basophils # (Auto) 0.1 x10^3/uL (0.0-0.2) Prothrombin Time 13.6 SEC (11.7-14.0) Prothrombin Time INR 1.1 (0.8-1.1) PTT 27 SEC (24-38) Sodium Level 145 mmol/L (136-145) Potassium Level 3.9 mmol/L (3.5-5.1) Chloride Level 107 mmol/L (98-107) Carbon Dioxide Level 29 mmol/L (21-32) Anion Gap 9 (6-14) Blood Urea Nitrogen 17 mg/dL (7-20) Creatinine 0.8 mg/dL (0.6-1.0) Estimated GFR (Cockcroft-Gault) 67.7 BUN/Creatinine Ratio 21 (6-20) H Glucose Level 101 mg/dL (70-99) H Calcium Level 9.1 mg/dL (8.5-10.1) Magnesium Level 1.8 mg/dL (1.8-2.4) Total Bilirubin 0.4 mg/dL (0.2-1.0) Aspartate Amino Transferase (AST) 25 U/L (15-37) Alanine Aminotransferase (ALT) 17 U/L (14-59) Alkaline Phosphatase 87 U/L (46-116) Troponin I Quantitative < 0.017 ng/mL (0.000-0.055) Total Protein 6.5 g/dL (6.4-8.2) Albumin 3.2 g/dL (3.4-5.0) L Albumin/Globulin Ratio 1.0 (1.0-1.7) Lipase 167 U/L (73-393) Urine Collection Type U cath Urine Color Yellow Urine Clarity Clear Urine pH 6.0 Urine Specific [place] 1.025 Urine Protein Negative mg/dL (NEG-TRACE) Urine Glucose (UA) Negative mg/dL (NEG) Urine Ketones (Stick) Negative mg/dL (NEG) Urine Blood Negative (NEG) Urine Nitrite Negative (NEG) Urine Bilirubin Negative (NEG) Urine Urobilinogen Dipstick 0.2 mg/dL (0.2 mg/dL) Urine Leukocyte Esterase Negative (NEG) Urine RBC 3-5 /HPF (0-2) Urine WBC 1-4 /HPF (0-4) Urine Squamous Epithelial Cells Mod /LPF Urine Bacteria 0 /HPF (0-FEW) Urine Hyaline Casts Few /HPF Urine Mucus Mod /LPF Laboratory Tests 07/11/17 13:05 Laboratory Tests 07/11/17 13:05 EKG EKG Sinus rhythm at 60 bpm with leftward axis no obvious ST elevation or depression and normal T waves. Radiology/Procedures Radiology/Procedures Indication change in mental status. Suspect CVA. Protocol exam. A single view of the chest was obtained and is compared to an examination 03/29/2017. Heart size is unchanged. Pulmonary vasculature is normal. There is elevation of the right hemidiaphragm similar to the previous exam. A focal process in the chest is not seen. Bipolar cardiac pacing device is noted. There has not been a significant change in the appearance of the chest compared to the previous exam. IMPRESSION: No acute finding. No significant change DICTATED and SIGNED BY: RALPH DWYER MD DATE: 07/11/[address] of the head without contrast, 07/11/2017: History: Altered mental status Comparison is made to a study from 03/15/2017. There is moderate cerebral atrophy. There is an unchanged small left frontoparietal lucency compatible with encephalomalacia due to an old infarct. There is mild patchy decreased density in the deep white matter compatible with chronic ischemic change. The ventricles are mildly enlarged on a compensatory basis. There is no shift of the midline structures. There is no evidence of acute intracranial hemorrhage or mass effect. IMPRESSION: 1. Chronic findings as described above. 2. No acute intracranial abnormality is detected. PQRS Compliance Statement: One or more of the following individualized dose reduction techniques were utilized for this examination: 1. Automated exposure control 2. Adjustment of the mA and/or kV according to patient size 3. Use of iterative reconstruction technique DICTATED and SIGNED BY: JACQUELINE VERAS MD DATE: 07/11/17 1303 Course & Med Decision Making Course & Med Decision Making Patient with altered mental status from undifferentiated etiology. Check labs CT head to chest x-ray and reassess. Patient had workup including labs urinalysis and imaging and everything came back negative. Nurse breathing spoke to his son who says that she is always confused and he would like her to go home unless there is something that she needs to be admitted for. Patient meets no admission criteria and looks quite well so she'll be discharged in stable condition and told to return with any new worsening symptoms otherwise follow up with primary care provider in the next 2-3 days to ensure improvement. Patient and family aware and agreeable with plan and patient was discharged in stable condition at her baseline. Dragon Disclaimer Dragon Disclaimer This electronic medical record was generated, in whole or in part, using a voice recognition dictation system. Departure Departure Impression: Primary Impression: Encephalopathy acute Additional Impression: Dementia Condition: STABLE Referrals: HAYLYE ESTRADA MD (PCP) Patient Instructions: Dementia Problem Qualifiers ANDREW FERRER DO Jul 11, 2017 12:26
[2017-07-11] MEDS ORDERED: DOCU100C28 PO (12:31)
--- NOTE | 2017-07-11 12:40 | RAD ---
Indication change in mental status. Suspect CVA. Protocol exam. A single view of the chest was obtained and is compared to an examination 03/29/2017. Heart size is unchanged. Pulmonary vasculature is normal. There is elevation of the right hemidiaphragm similar to the previous exam. A focal process in the chest is not seen. Bipolar cardiac pacing device is noted. There has not been a significant change in the appearance of the chest compared to the previous exam. IMPRESSION: No acute finding. No significant change
--- NOTE | 2017-07-11 12:56 | EKG ---
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
--- NOTE | 2017-07-11 13:11 | RAD ---
CT of the head without contrast, 07/11/2017: History: Altered mental status Comparison is made to a study from 03/15/2017. There is moderate cerebral atrophy. There is an unchanged small left frontoparietal lucency compatible with encephalomalacia due to an old infarct. There is mild patchy decreased density in the deep white matter compatible with chronic ischemic change. The ventricles are mildly enlarged on a compensatory basis. There is no shift of the midline structures. There is no evidence of acute intracranial hemorrhage or mass effect. IMPRESSION: 1. Chronic findings as described above. 2. No acute intracranial abnormality is detected. PQRS Compliance Statement: One or more of the following individualized dose reduction techniques were utilized for this examination: 1. Automated exposure control 2. Adjustment of the mA and/or kV according to patient size 3. Use of iterative reconstruction technique
[2017-07-11] MEDS: IV NORMAL SALINE 1000ML BAG 1,000 ML IV ONE (13:20)
[2017-07-11 13:33] LABS: BASO # 0.1 x10^3/uL (0.0-0.2); BASO % 1 % (0-3); EOS % 4 % (0-3); HEMATOCRIT 39.3 % (36.0-47.0); HEMOGLOBIN 12.8 g/dL (12.0-15.5); LYMPH # 2.4 x10^3/uL (1.0-4.8); LYMPH % 36 % (24-48); MEAN CORPUSCULAR HEMOGLOBIN 32 pg (25-35); MEAN CORPUSCULAR HGB CONC 33 g/dL (31-37); MEAN CORPUSCULAR VOLUME 98 fL (79-100); MONO % 7 % (0-9); NEUT % 53 % (31-73); PLATELET COUNT 169 x10^3/uL (140-400); RED CELL DISTRIBUTION WIDTH 14.6 % (11.5-14.5); WHITE BLOOD COUNT 6.5 x10^3/uL (4.0-11.0)
[2017-07-11 13:35] LABS: BILIRUBIN,URINE NEGATIVE (NEG); GLUCOSE,URINE NEGATIVE (NEG); NITRITE,URINE NEGATIVE (NEG); PROTEIN,URINE NEGATIVE (NEG-TRACE); UROBILINOGEN,URINE 0.2 mg/dL (0.2 mg/dL)
[2017-07-11 13:47] LABS: CALCIUM 9.1 mg/dL (8.5-10.1); CREATININE 0.8 mg/dL (0.6-1.0); GFR 67.7; POTASSIUM 3.9 mmol/L (3.5-5.1)
[2017-07-11 13:50] LABS: INR 1.1 (0.8-1.1); PROTHROMBIN TIME PATIENT 13.6 SEC (11.7-14.0)
[2017-07-11 13:52] LABS: ALBUMIN 3.2 g/dL (3.4-5.0); MAGNESIUM 1.8 mg/dL (1.8-2.4); TOTAL BILIRUBIN 0.4 mg/dL (0.2-1.0); TOTAL PROTEIN 6.5 g/dL (6.4-8.2)
[2017-07-11 13:53] LABS: BACTERIA,URINE 0 /HPF (0-FEW); SQUAMOUS EPITHELIAL CELL,UR MOD /LPF
[2017-07-11 15:35] VITALS: BP 172/87
== END 2017-07-11 15:40 | disposition home or self-care (01) ==
LOC: ER 12:04
DX: G93.40 Encephalopathy, unspecified (principal); F03.90 Unspecified dementia, unspecified severity, without behavioral disturbance, psychotic disturbance, mood disturbance, and anxiety; F32.9 Major depressive disorder, single episode, unspecified; E03.9 Hypothyroidism, unspecified; E78.00 Pure hypercholesterolemia, unspecified; I10 Essential (primary) hypertension; M10.9 Gout, unspecified; Z86.73 Personal history of transient ischemic attack (TIA), and cerebral infarction without residual deficits; Z86.718 Personal history of other venous thrombosis and embolism; Z88.2 Allergy status to sulfonamides; Z88.0 Allergy status to penicillin; Z88.5 Allergy status to narcotic agent; Z88.8 Allergy status to other drugs, medicaments and biological substances; Z88.6 Allergy status to analgesic agent; Z91.041 Radiographic dye allergy status
CPT/HCPCS: 36415; 70450; 71010; 80053; 81001; 83690; 83735; 84484; 85025; 85610; 85730; 93005; 96360; 96361; 99285; J7030

== ENCOUNTER 2017-07-20 14:53 | Emergency (ER) | payer OTHER ==
[~2017-07-20 14:53] MED LIST changes: +DOCU100C28 PO
--- NOTE | 2017-07-20 15:01 | PHYS DOC ---
Past Medical History Past Medical History: CVA, Depression, DVT, High Cholesterol, Hypertension, Hypothyroid, TIA Additional Past Medical Histor: Gout, osteoarthritis Past Surgical History: Hysterectomy, Other Additional Past Surgical Histo: bladder; "blood clot stent" Alcohol Use: None Drug Use: None Adult General Chief Complaint Chief Complaint: MECHANICAL FALL HPI HPI Patient is a 87 year old female with dementia who presents with chief complaint of 2 falls at [facility]. The patient states she was feeling dizzy earlier but denies any dizziness or any complaints at this time. The patient currently admitted to the hospital here at [facility] a little over a week ago and was treated for cystitis. The patient denies any dysuria or hematuria. The patient is not oriented 3. The patient is awake that she is in the hospital. Patient aware of her knee and the patient uncertain of the date. The patient denies fevers or chills. The patient denies pain in the areas. The patient has some dementia and was seen on 11 July with the chief complaint of increased confusion and was worked up in the emergency department and released. The patient today also does not know the time which is similar to her visit on the . Review of Systems Review of Systems Review of systems Limited by patient mental status] Current Medications Current Medications Current Medications Medications (Trade) Dose Ordered Sig/Flor Start Time Stop Time Status Last Admin Dose Admin Potassium Chloride (Klor-Con) 40 meq 1X ONCE 07/20/17 17:15 07/20/17 17:16 DC 07/20/17 18:05 40 MEQ Allergies Allergies Allergies Coded Allergies Type Severity Reaction Last Updated Verified Penicillins Allergy Intermediate Rash 09/28/16 Yes Sulfa (Sulfonamide Antibiotics) Allergy Intermediate 02/09/17 Yes codeine Allergy Intermediate Rash 09/28/16 Yes iodine Allergy Intermediate 02/09/17 Yes oxybutynin Allergy Intermediate 02/09/17 Yes quinapril HCl Allergy Intermediate Rash 09/28/16 Yes tramadol Allergy Intermediate 02/09/17 Yes Physical Exam Physical Exam Constitutional: Well developed, well nourished, no acute distress, non-toxic appearance. [] HENT: Normocephalic, atraumatic, bilateral external ears normal, oropharynx moist, no oral exudates, nose normal. [] Eyes: PERRLA, EOMI, conjunctiva normal, no discharge. [] Neck: Normal range of motion, no tenderness, supple, no stridor. [] Cardiovascular:Heart rate regular rhythm, no murmur [] Lungs & Thorax: Bilateral breath sounds clear to auscultation [] Abdomen: Bowel sounds normal, soft, no tenderness, no masses, no pulsatile masses. [] Skin: Warm, dry, no erythema, no rash. [] Back: No tenderness, no CVA tenderness. [] Extremities: No tenderness, no cyanosis, no clubbing, ROM intact, no edema. [] Neurologic: Alert and oriented X 2, the patient is aware of her name, the patient is aware she's in hospital patient confused with regards to date, normal motor function, normal sensory function, no focal deficits noted, radial nerves II through XII tested intact[] Psychologic: Affect normal, judgement normal, mood normal. [] Current Patient Data Vital Signs Vital Signs Date Time Temp Pulse Resp B/P (MAP) Pulse Ox O2 Delivery O2 Flow Rate FiO2 07/20/17 14:53 97.9 62 20 137/70 (92) 96 Room Air 97.9 Lab Values Laboratory Tests Test 07/20/17 15:07 07/20/17 15:35 Urine Collection Type Unknown Urine Color Yellow Urine Clarity Clear Urine pH 6.0 Urine Specific [place] 1.010 Urine Protein Negative mg/dL (NEG-TRACE) Urine Glucose (UA) Negative mg/dL (NEG) Urine Ketones (Stick) Negative mg/dL (NEG) Urine Blood Negative (NEG) Urine Nitrite Negative (NEG) Urine Bilirubin Negative (NEG) Urine Urobilinogen Dipstick 0.2 mg/dL (0.2 mg/dL) Urine Leukocyte Esterase Negative (NEG) Urine RBC 0 /HPF (0-2) Urine WBC 0 /HPF (0-4) Urine Bacteria 0 /HPF (0-FEW) Urine Hyaline Casts Occasional /HPF Urine Mucus Slight /LPF White Blood Count 7.1 x10^3/uL (4.0-11.0) Red Blood Count 4.07 x10^6/uL (3.50-5.40) Hemoglobin 13.2 g/dL (12.0-15.5) Hematocrit 38.9 % (36.0-47.0) Mean Corpuscular Volume 96 fL (79-100) Mean Corpuscular Hemoglobin 32 pg (25-35) Mean Corpuscular Hemoglobin Concent 34 g/dL (31-37) Red Cell Distribution Width 14.5 % (11.5-14.5) Platelet Count 205 x10^3/uL (140-400) Neutrophils (%) (Auto) 54 % (31-73) Lymphocytes (%) (Auto) 35 % (24-48) Monocytes (%) (Auto) 7 % (0-9) Eosinophils (%) (Auto) 3 % (0-3) Basophils (%) (Auto) 1 % (0-3) Neutrophils # (Auto) 3.9 x10^3uL (1.8-7.7) Lymphocytes # (Auto) 2.5 x10^3/uL (1.0-4.8) Monocytes # (Auto) 0.5 x10^3/uL (0.0-1.1) Eosinophils # (Auto) 0.2 x10^3/uL (0.0-0.7) Basophils # (Auto) 0.1 x10^3/uL (0.0-0.2) Prothrombin Time 13.2 SEC (11.7-14.0) Prothrombin Time INR 1.1 (0.8-1.1) PTT 31 SEC (24-38) Sodium Level 142 mmol/L (136-145) Potassium Level 3.4 mmol/L (3.5-5.1) L Chloride Level 106 mmol/L (98-107) Carbon Dioxide Level 27 mmol/L (21-32) Anion Gap 9 (6-14) Blood Urea Nitrogen 19 mg/dL (7-20) Creatinine 1.1 mg/dL (0.6-1.0) H Estimated GFR (Cockcroft-Gault) 46.9 BUN/Creatinine Ratio 17 (6-20) Glucose Level 121 mg/dL (70-99) H Calcium Level 9.0 mg/dL (8.5-10.1) Magnesium Level 2.0 mg/dL (1.8-2.4) Total Bilirubin 0.3 mg/dL (0.2-1.0) Aspartate Amino Transferase (AST) 28 U/L (15-37) Alanine Aminotransferase (ALT) 23 U/L (14-59) Alkaline Phosphatase 100 U/L (46-116) Troponin I Quantitative < 0.017 ng/mL (0.000-0.055) Total Protein 6.8 g/dL (6.4-8.2) Albumin 3.5 g/dL (3.4-5.0) Albumin/Globulin Ratio 1.1 (1.0-1.7) Laboratory Tests 07/20/17 15:35 Laboratory Tests 07/20/17 15:35 EKG EKG EKG as well as a normal sinus rhythm with left anterior fascicular block present. Sclerae is 60 bpm the ID interval is 202 ms. QRS duration is 108 ms EKG was read by Dr. Bardales at 3:16 PM[] Radiology/Procedures Radiology/Procedures [facility] [address] [place] [address] IMAGING REPORT Signed PATIENT: PATRICIO TAYLOR ACCOUNT: [id number] : 1930 LOCATION: ER AGE: 87 SEX: F EXAM STATUS: REG ER ORD. PHYSICIAN: VINH HOUSTON MD REASON: altered mental status PROCEDURE: PORTABLE CHEST 1V Indication fall. Anterior chest wall pain. A single view of the chest was obtained and is compared to an examination 9 days ago. The heart, pulmonary vessels and mediastinum appear normal. The lungs are clear of acute infiltrates. There is no pleural fluid or pneumothorax. There is slight blunting, likely chronic, at the right costophrenic angle similar to the previous study. There has not been a significant change in the appearance of the chest compared to the prior study. Bipolar cardiac pacing device is noted. IMPRESSION: No acute or focal process. No significant change DICTATED and SIGNED BY: RALPH DWYER MD DATE: 07/20/171535 CC: HAYLEY ESTRADA MD; VINH HOUSTON MD ~ [facility] [address] [place] [address] IMAGING REPORT Signed PATIENT: PATRICIO TAYLOR ACCOUNT: [id number] : 1930 LOCATION: ER AGE: 87 SEX: F EXAM STATUS: REG ER ORD. PHYSICIAN: VINH HOUSTON MD REASON: [facility] PROCEDURE: CT HEAD AND CERVICAL SPINE WO CT of the head without contrast, 07/20/2017: History: Fall Comparison is made to a study from 07/11/2017 there is moderate cerebral atrophy. There is a small area of encephalomalacia due to an old infarct in the high left frontal region. There are mild deep white matter lucencies compatible with chronic ischemic change. The ventricles are mildly enlarged on a compensatory basis. There is no shift of the midline structures. There is no evidence of acute intracranial hemorrhage or mass effect. There is also mild cerebellar atrophy. IMPRESSION: 1. Chronic findings as described above. 2. No acute intracranial abnormality is detected. CT of the cervical spine without contrast, 07/20/2017: Noncontrast scans were obtained with multiplanar reconstructions produced. There is disc space narrowing and moderate marginal spurring at multiple levels in the mid and lower cervical spine. There are moderate degenerative changes involving scattered facet joints bilaterally. The combination of findings is causing mild central spinal stenosis and moderate foraminal encroachment at multiple levels bilaterally. No acute fracture or dislocation is identified. Moderate calcific plaquing is present at the carotid bifurcations. IMPRESSION: 1. Moderate multilevel degenerative change. 2. No acute bony abnormality is detected. PQRS Compliance Statement: One or more of the following individualized dose reduction techniques were utilized for this examination: 1. Automated exposure control 2. Adjustment of the mA and/or kV according to patient size 3. Use of iterative reconstruction technique DICTATED and SIGNED BY: JACQUELINE VERAS MD DATE: 07/20/17 1604 CC: HAYLEY ESTRADA MD; VINH HOUSTON MD ~ [] Course & Med Decision Making Course & Med Decision Making Pertinent Labs and Imaging studies reviewed. (See chart for details) The patient was rechecked 3 times during her ED evaluation. The patient remained at her baseline mental functioning alert and oriented to self and location but unaware of time or date. The patient had no arrhythmias. The patient was [facility]. The patient denied any complaints throughout her ED evaluation. Patient's CT of her head and neck were negative as was her chest x-ray. The patient's UA CBC and CMP were without significant abnormality. The patient be released back to [facility].[] Dragon Disclaimer Dragon Disclaimer This electronic medical record was generated, in whole or in part, using a voice recognition dictation system. Departure Departure Referrals: HAYLEY ESTRADA MD (PCP) VINH HOUSTON MD Jul 20, 2017 15:01
--- NOTE | 2017-07-20 15:24 | EKG ---
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
[2017-07-20 15:34] LABS: BILIRUBIN,URINE NEGATIVE (NEG); GLUCOSE,URINE NEGATIVE (NEG); NITRITE,URINE NEGATIVE (NEG); PROTEIN,URINE NEGATIVE (NEG-TRACE); UROBILINOGEN,URINE 0.2 mg/dL (0.2 mg/dL)
--- NOTE | 2017-07-20 15:41 | RAD ---
Indication fall. Anterior chest wall pain. A single view of the chest was obtained and is compared to an examination 9 days ago. The heart, pulmonary vessels and mediastinum appear normal. The lungs are clear of acute infiltrates. There is no pleural fluid or pneumothorax. There is slight blunting, likely chronic, at the right costophrenic angle similar to the previous study. There has not been a significant change in the appearance of the chest compared to the prior study. Bipolar cardiac pacing device is noted. IMPRESSION: No acute or focal process. No significant change
[2017-07-20 15:44] LABS: BACTERIA,URINE 0 /HPF (0-FEW); RBC,URINE 0 /HPF (0-2); WBC,URINE 0 /HPF (0-4)
[2017-07-20 15:49] LABS: BASO # 0.1 x10^3/uL (0.0-0.2); BASO % 1 % (0-3); EOS % 3 % (0-3); HEMATOCRIT 38.9 % (36.0-47.0); HEMOGLOBIN 13.2 g/dL (12.0-15.5); LYMPH # 2.5 x10^3/uL (1.0-4.8); LYMPH % 35 % (24-48); MEAN CORPUSCULAR HEMOGLOBIN 32 pg (25-35); MEAN CORPUSCULAR HGB CONC 34 g/dL (31-37); MEAN CORPUSCULAR VOLUME 96 fL (79-100); MONO % 7 % (0-9); NEUT % 54 % (31-73); PLATELET COUNT 205 x10^3/uL (140-400); RED BLOOD COUNT 4.07 x10^6/uL (3.50-5.40); RED CELL DISTRIBUTION WIDTH 14.5 % (11.5-14.5); WHITE BLOOD COUNT 7.1 x10^3/uL (4.0-11.0)
[2017-07-20 15:59] LABS: INR 1.1 (0.8-1.1); PROTHROMBIN TIME PATIENT 13.2 SEC (11.7-14.0)
--- NOTE | 2017-07-20 16:11 | RAD ---
CT of the head without contrast, 07/20/2017: History: Fall Comparison is made to a study from 07/11/2017 there is moderate cerebral atrophy. There is a small area of encephalomalacia due to an old infarct in the high left frontal region. There are mild deep white matter lucencies compatible with chronic ischemic change. The ventricles are mildly enlarged on a compensatory basis. There is no shift of the midline structures. There is no evidence of acute intracranial hemorrhage or mass effect. There is also mild cerebellar atrophy. IMPRESSION: 1. Chronic findings as described above. 2. No acute intracranial abnormality is detected. CT of the cervical spine without contrast, 07/20/2017: Noncontrast scans were obtained with multiplanar reconstructions produced. There is disc space narrowing and moderate marginal spurring at multiple levels in the mid and lower cervical spine. There are moderate degenerative changes involving scattered facet joints bilaterally. The combination of findings is causing mild central spinal stenosis and moderate foraminal encroachment at multiple levels bilaterally. No acute fracture or dislocation is identified. Moderate calcific plaquing is present at the carotid bifurcations. IMPRESSION: 1. Moderate multilevel degenerative change. 2. No acute bony abnormality is detected. PQRS Compliance Statement: One or more of the following individualized dose reduction techniques were utilized for this examination: 1. Automated exposure control 2. Adjustment of the mA and/or kV according to patient size 3. Use of iterative reconstruction technique
[2017-07-20 16:24] LABS: ALBUMIN 3.5 g/dL (3.4-5.0); ALBUMIN/GLOBULIN RATIO 1.1 (1.0-1.7); CREATININE 1.1 mg/dL (0.6-1.0); GFR 46.9; POTASSIUM 3.4 mmol/L (3.5-5.1); TOTAL BILIRUBIN 0.3 mg/dL (0.2-1.0); TOTAL PROTEIN 6.8 g/dL (6.4-8.2)
[2017-07-20] MEDS ORDERED: POTASSIUM CHLORIDE 20 MEQ TABLET.ER. PO ONE (17:15)
[2017-07-20 17:29] VITALS: BP 187/73
== END 2017-07-20 19:00 | disposition home or self-care (01) ==
LOC: ER 14:53
DX: S09.8XXA Other specified injuries of head, initial encounter (principal); F03.90 Unspecified dementia, unspecified severity, without behavioral disturbance, psychotic disturbance, mood disturbance, and anxiety; E03.9 Hypothyroidism, unspecified; E78.00 Pure hypercholesterolemia, unspecified; I10 Essential (primary) hypertension; M10.9 Gout, unspecified; M19.90 Unspecified osteoarthritis, unspecified site; F32.9 Major depressive disorder, single episode, unspecified; Z86.718 Personal history of other venous thrombosis and embolism; Z86.73 Personal history of transient ischemic attack (TIA), and cerebral infarction without residual deficits; Z88.0 Allergy status to penicillin; Z88.5 Allergy status to narcotic agent; Z88.2 Allergy status to sulfonamides; Z88.8 Allergy status to other drugs, medicaments and biological substances; Z88.6 Allergy status to analgesic agent; Z91.041 Radiographic dye allergy status; W19.XXXA Unspecified fall, initial encounter; Y93.89 Activity, other specified; Y99.8 Other external cause status; Y92.89 Other specified places as the place of occurrence of the external cause
CPT/HCPCS: 36415; 51701; 70450; 71010; 72125; 80053; 81001; 83735; 84484; 85025; 85610; 85730; 93005; 99285-25

== ENCOUNTER 2017-08-01 05:37 | Emergency (ER) | payer OTHER ==
[~2017-08-01] VITALS: Ht 167.6 cm; Wt 77.1 kg
--- NOTE | 2017-08-01 07:12 | RAD ---
Right knee, 3 views, 08/01/2017: History: Fall, pain The bony structures are demineralized. There is moderate narrowing of the knee joint, greatest laterally, with moderate marginal spurring. There are moderate hypertrophic degenerative changes at the knee joint. Multiple periarticular calcifications are compatible with loose bodies. No acute fracture or dislocation is identified. Moderate subcutaneous edema is present anteriorly. IMPRESSION: 1. Moderately severe degenerative change with multiple loose bodies in the knee joint. 2. No acute bony abnormality is detected.
--- NOTE | 2017-08-01 07:13 | RAD ---
Right shoulder, 3 views, 08/01/2017: History: Fall, pain The bony structures are demineralized. There are moderate degenerative changes at the shoulder joint with subacromial spurring. No acute fracture or dislocation is identified. There are old healed rib fractures on the upper right. IMPRESSION: 1. Degenerative change. 2. No acute bony abnormality is detected.
--- NOTE | 2017-08-01 07:17 | EKG ---
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
--- NOTE | 2017-08-01 07:25 | RAD ---
CT of the head without contrast, 08/01/2017: History: Fall, head injury, dementia Comparison is made to a study from 07/20/2017. There is a moderate-sized scalp hematoma in the right frontal region. No underlying fracture is identified. There is moderate cerebral atrophy. There is an unchanged lucency in the left frontal region compatible with an old infarct. Additional mild deep white matter lucencies are compatible with chronic ischemic change. The ventricles are mildly enlarged on a compensatory basis. There is no shift of the midline structures. There is no evidence of acute intracranial hemorrhage or mass effect. IMPRESSION: 1. Chronic findings as described above. 2. No acute intracranial abnormality is detected. PQRS Compliance Statement: One or more of the following individualized dose reduction techniques were utilized for this examination: 1. Automated exposure control 2. Adjustment of the mA and/or kV according to patient size 3. Use of iterative reconstruction technique
--- NOTE | 2017-08-01 08:04 | PHYS DOC ---
Past Medical History Past Medical History: CVA, Depression, DVT, High Cholesterol, Hypertension, Hypothyroid, TIA Additional Past Medical Histor: Gout, osteoarthritis Past Surgical History: Hysterectomy, Other Additional Past Surgical Histo: bladder; "blood clot stent" Alcohol Use: None Drug Use: None Adult General Chief Complaint Chief Complaint: MECHANICAL FALL HPI HPI Patient is a 87 year old female brought from [facility] assisted living by EMS after a fall this morning. Patient states that she got up to go to the bathroom and she doesn't know how it happened but she fell. She doesn't know what she struck her head on. She does not believe she had syncope or had loss of consciousness after the fall. At this time she is complaining of head pain, right shoulder pain. Patient has been seen recently for another fall. She states she has had some falls lately. Patient states she doesn't really know what has made her fall. Patient's daughter arrived and stated that she has had some falls recently. They had placed a pacemaker a few months ago because of falls, thought that would help, but she has had more falls after the pacemaker. The patient lives in assisted living and has no supervision. PCP Dr. Robledo Review of Systems Review of Systems Constitutional: Denies fever or chills [] Eyes: Denies change in visual acuity, redness, or eye pain [] HENT: Denies nasal congestion or sore throat [] Respiratory: Denies cough or shortness of breath [] Cardiovascular: Denies chest pain GI: Denies abdominal pain, nausea, vomiting, bloody stools or diarrhea [] : Denies dysuria or hematuria [] Musculoskeletal: Complains of right shoulder pain, denies right knee pain, denies hip pain Neurologic: She has had pain in the area of her forehead hematoma but not a headache Allergies Allergies Allergies Coded Allergies Type Severity Reaction Last Updated Verified Penicillins Allergy Intermediate Rash 09/28/16 Yes Sulfa (Sulfonamide Antibiotics) Allergy Intermediate 02/09/17 Yes codeine Allergy Intermediate Rash 09/28/16 Yes iodine Allergy Intermediate 02/09/17 Yes oxybutynin Allergy Intermediate 02/09/17 Yes quinapril HCl Allergy Intermediate Rash 09/28/16 Yes tramadol Allergy Intermediate 02/09/17 Yes Physical Exam Physical Exam Constitutional: Well developed, well nourished, no acute distress, non-toxic appearance. Alert, appropriate, mentating normally. HENT: bilateral external ears normal, oropharynx moist, no oral exudates, nose normal. There is a large hematoma over the right forehead. There is a 1.5 cm laceration in the right eyebrow which has been bleeding but is currently hemostatic. There is ecchymosis around the right eye. No other facial injuries noted. Eyes: Right eye lid ecchymosis as described, the right eye is not involved and is uninjured, conjunctiva normal, no discharge. [] Neck: Normal range of motion, no tenderness, supple, no stridor. [] Cardiovascular:Heart rate regular rhythm, no murmur [] Lungs & Thorax: Bilateral breath sounds clear to auscultation [] Skin: Warm, dry, no erythema, no rash. [] Extremities: Right shoulder has swelling and ecchymosis over the top and anterior joint space. Range of motion is somewhat painful but she is able to range. Otherwise upper extremities are negative for swelling, tenderness, or deformity. Right knee has an ecchymosis over the patella. No joint effusion. Bilateral hips are without pain with range of motion. Otherwise lower extremities unremarkable. Neurologic: Alert and seems to be at her baseline,, normal motor function, no focal deficits noted. [] Current Patient Data Vital Signs Vital Signs Date Time Temp Pulse Resp B/P (MAP) Pulse Ox O2 Delivery O2 Flow Rate FiO2 08/01/17 08:08 64 16 187/86 (119) 95 Room Air 08/01/17 05:48 97.7 97.7 EKG EKG 12-lead EKG read by me. Fully paced. Heart rate 60. There are no acute ST or T wave changes indicative of ischemia or infarction. No [id number][] Radiology/Procedures Radiology/Procedures Two-view x-ray of the right knee and three-view x-ray of the right shoulder interpreted by the radiologist. No acute bony injury. CT Scan of the head read by the radiologist. No acute intracranial finding.[] Procedure: Repair of right eyebrow 1.5 cm laceration by me The area was cleaned with saline and hydrogen peroxide was used to remove the hardened blood. The laceration is easily approximated. The patient prefers to not have sutures. Skin adhesive was used to repair the laceration with good result. Course & Med Decision Making Course & Med Decision Making Pertinent Labs and Imaging studies reviewed. (See chart for details) 79-year-old female who had a mechanical fall this morning at her assisted living facility. She has had multiple falls over the past few months. Today, no acute bony injury. Her laceration was repaired. I talked with the patient and her daughter about the fact that she most likely needs a higher level of care. I recommended looking into either long term placement or having someone stay with her, possibly at night since that seems to be the time of day that she does fall. Pt is stable for return to her living facility which is her desire at this time. [] Dragon Disclaimer Dragon Disclaimer This electronic medical record was generated, in whole or in part, using a voice recognition dictation system. Departure Departure Impression: Primary Impression: Head injury, acute, without loss of consciousness Additional Impressions: Fall Traumatic hematoma of forehead Laceration of eyebrow, right Contusion of right shoulder Contusion of right knee Recurrent falls Disposition: 01 HOME, SELF-CARE Condition: IMPROVED Referrals: HAYLEY ROBLEDO MD (PCP) Patient Instructions: Contusion, Kfas-[id number], Head Injury, Adult, Zovd-zd-Dhnl , Hematoma, Gcyv-pr-Ccdd Additional Instructions: Swelling of the face will be worse after sleeping flat and will get better after being up a few hours and letting gravity work. If possible, sleep with the head elevated to minimize swelling. The black eye will get worse and larger before it gets better. The eyebrow laceration was repaired with skin adhesive. You may get it wet briefly to shower and wash your face. Do not put any ointment on it. It will flake off over the next few days. Ice to areas of pain and swelling 15-20 minutes out of every 1-2 hours. As we discussed, frequent falls may signal the need for a different living situation, possibly a move to a long term or having more care in the home such as someone to sit at night and help with ambulation to the bathroom. Problem Qualifiers VIVI BECKETT MD Aug 01, 2017 08:04
[2017-08-01 08:08] VITALS: BP 187/86
== END 2017-08-01 09:48 | disposition home or self-care (01) ==
LOC: ER 05:37
DX: S01.111A Laceration without foreign body of right eyelid and periocular area, initial encounter (principal); S40.011A Contusion of right shoulder, initial encounter; S80.01XA Contusion of right knee, initial encounter; S09.90XA Unspecified injury of head, initial encounter; F32.9 Major depressive disorder, single episode, unspecified; E78.00 Pure hypercholesterolemia, unspecified; I10 Essential (primary) hypertension; E03.9 Hypothyroidism, unspecified; M19.90 Unspecified osteoarthritis, unspecified site; M10.9 Gout, unspecified; Z86.73 Personal history of transient ischemic attack (TIA), and cerebral infarction without residual deficits; Z88.0 Allergy status to penicillin; Z95.0 Presence of cardiac pacemaker; Z86.718 Personal history of other venous thrombosis and embolism; W18.39XA Other fall on same level, initial encounter; Y93.89 Activity, other specified; Y92.89 Other specified places as the place of occurrence of the external cause; Y99.8 Other external cause status
CPT/HCPCS: 12011; 70450; 73030; 73562; 93005; 99284-25

== ENCOUNTER 2017-11-16 05:00 | Emergency (ER) | payer OTHER ==
[2017-11-16 06:00] LABS: BILIRUBIN,URINE NEGATIVE (NEG); CLARITY,URINE CLEAR; COLOR,URINE YELLOW; GLUCOSE,URINE NEGATIVE (NEG); NITRITE,URINE NEGATIVE (NEG); PROTEIN,URINE NEGATIVE (NEG-TRACE); UROBILINOGEN,URINE 0.2 mg/dL (0.2 mg/dL)
[2017-11-16 06:13] LABS: BACTERIA,URINE MANY /HPF (0-FEW); SQUAMOUS EPITHELIAL CELL,UR FEW /LPF
[2017-11-16] MEDS: IV NORMAL SALINE 1000ML BAG 1,000 ML IV (06:13)
[2017-11-16] MEDS ORDERED: ONDANSETRON PF 4 MG/2 ML VIAL. (06:24)
[2017-11-16] MEDS ORDERED: MORPHINE SULFATE 4 MG/ML DISP.SYRIN. (06:25)
[2017-11-16 06:40] LABS: ADD MAN DIFF? NO
[2017-11-16 06:44] LABS: BASO # 0.1 x10^3/uL (0.0-0.2); BASO % 1 % (0-3); EOS # 0.2 x10^3/uL (0.0-0.7); EOS % 3 % (0-3); HEMATOCRIT 41.7 % (36.0-47.0); HEMOGLOBIN 13.7 g/dL (12.0-15.5); LYMPH # 2.2 x10^3/uL (1.0-4.8); LYMPH % 28 % (24-48); MEAN CORPUSCULAR HEMOGLOBIN 32 pg (25-35); MEAN CORPUSCULAR HGB CONC 33 g/dL (31-37); MEAN CORPUSCULAR VOLUME 96 fL (79-100); MONO # 0.5 x10^3/uL (0.0-1.1); MONO % 6 % (0-9); NEUT % 63 % (31-73); PLATELET COUNT 176 x10^3/uL (140-400); RED BLOOD COUNT 4.33 x10^6/uL (3.50-5.40); RED CELL DISTRIBUTION WIDTH 14.2 % (11.5-14.5); WHITE BLOOD COUNT 7.9 x10^3/uL (4.0-11.0)
[2017-11-16] MEDS: TETANUS IMMUNE GLOBULIN PF 250 UNIT DISP.SYRIN. VAX IM (06:44)
[2017-11-16] MEDS: ONDANSETRON PF 4 MG/2 ML VIAL. IV (06:49)
[2017-11-16] MEDS: MORPHINE SULFATE 4 MG/ML DISP.SYRIN. IV (06:50)
[2017-11-16 07:11] LABS: ANION GAP 11 (6-14); BLOOD UREA NITROGEN 20 mg/dL (7-20); BUN/CREATININE RATIO 25 (6-20); CARBON DIOXIDE 26 mmol/L (21-32); CHLORIDE 106 mmol/L (98-107); CREATININE 0.8 mg/dL (0.6-1.0); GFR 67.7; GLUCOSE 99 mg/dL (70-99); POTASSIUM 4.1 mmol/L (3.5-5.1); SODIUM 143 mmol/L (136-145)
[2017-11-16 07:17] LABS: ALBUMIN 3.7 g/dL (3.4-5.0); ALBUMIN/GLOBULIN RATIO 1.1 (1.0-1.7); ALK PHOS 86 U/L (46-116); ALT (SGPT) 17 U/L (14-59); AST (SGOT) 25 U/L (15-37); TOTAL BILIRUBIN 0.3 mg/dL (0.2-1.0); TOTAL PROTEIN 7.2 g/dL (6.4-8.2)
[2017-11-16 07:21] LABS: TROPONINI < 0.017 ng/mL (0.000-0.055)
[2017-11-16 07:24] LABS: THYROID STIM HORMONE (TSH) 3.387 uIU/mL (0.358-3.74)
[2017-11-16] MEDS ORDERED: IV NORMAL SALINE 1000ML BAG 1,000 ML IV (07:45)
== END 2017-11-16 09:16 | disposition home or self-care (01) ==
LOC: ER 05:00
DX: S01.01XA Laceration without foreign body of scalp, initial encounter (principal); E03.9 Hypothyroidism, unspecified; E78.00 Pure hypercholesterolemia, unspecified; F03.90 Unspecified dementia, unspecified severity, without behavioral disturbance, psychotic disturbance, mood disturbance, and anxiety; I10 Essential (primary) hypertension; M10.9 Gout, unspecified; F32.9 Major depressive disorder, single episode, unspecified; Z86.73 Personal history of transient ischemic attack (TIA), and cerebral infarction without residual deficits; Z95.0 Presence of cardiac pacemaker; Z90.710 Acquired absence of both cervix and uterus; Z88.0 Allergy status to penicillin; Z88.2 Allergy status to sulfonamides; Z88.5 Allergy status to narcotic agent; Z88.6 Allergy status to analgesic agent; Z91.041 Radiographic dye allergy status; Z88.8 Allergy status to other drugs, medicaments and biological substances; W18.39XA Other fall on same level, initial encounter; Y93.89 Activity, other specified; Y99.8 Other external cause status; Y92.89 Other specified places as the place of occurrence of the external cause
CPT/HCPCS: 12002; 36415; 51701; 70450; 71045; 72125; 72170; 80053; 81001; 84443; 84484; 85025; 93005; 96361; 96372; 96374; 96375; 99285-25; J1670; J2270; J2405; J7030

== ENCOUNTER 2017-12-11 10:15 | Inpatient (IN) | payer OTHER ==
[2017-12-11 10:52] LABS: ADD MAN DIFF? NO
[2017-12-11 10:56] LABS: BASO % 0 % (0-3); EOS # 0.1 x10^3/uL (0.0-0.7); EOS % 1 % (0-3); HEMATOCRIT 35.5 % (36.0-47.0); HEMOGLOBIN 11.9 g/dL (12.0-15.5); LYMPH # 1.6 x10^3/uL (1.0-4.8); LYMPH % 15 % (24-48); MEAN CORPUSCULAR HEMOGLOBIN 32 pg (25-35); MEAN CORPUSCULAR HGB CONC 33 g/dL (31-37); MEAN CORPUSCULAR VOLUME 94 fL (79-100); MONO % 9 % (0-9); NEUT # 7.5 x10^3uL (1.8-7.7); NEUT % 74 % (31-73); PLATELET COUNT 189 x10^3/uL (140-400); RED BLOOD COUNT 3.76 x10^6/uL (3.50-5.40); RED CELL DISTRIBUTION WIDTH 14.3 % (11.5-14.5); WHITE BLOOD COUNT 10.2 x10^3/uL (4.0-11.0)
[2017-12-11 10:57] LABS: BILIRUBIN,URINE NEGATIVE (NEG); CLARITY,URINE CLEAR; COLOR,URINE AMBER; GLUCOSE,URINE NEGATIVE (NEG); NITRITE,URINE POSITIVE (NEG); PROTEIN,URINE NEGATIVE (NEG-TRACE)
[2017-12-11 11:06] LABS: ANION GAP 10 (6-14); BLOOD UREA NITROGEN 17 mg/dL (7-20); BUN/CREATININE RATIO 19 (6-20); CALCIUM 8.5 mg/dL (8.5-10.1); CARBON DIOXIDE 25 mmol/L (21-32); CHLORIDE 102 mmol/L (98-107); CREATININE 0.9 mg/dL (0.6-1.0); GFR 59.1; GLUCOSE 136 mg/dL (70-99); POTASSIUM 3.5 mmol/L (3.5-5.1); SODIUM 137 mmol/L (136-145)
[2017-12-11 11:08] LABS: BACTERIA,URINE MANY /HPF (0-FEW); WBC,URINE TNTC /HPF (0-4)
[2017-12-11 11:09] LABS: RBC,URINE FOBS /HPF (0-2)
[2017-12-11 11:12] LABS: ALBUMIN 2.7 g/dL (3.4-5.0); ALBUMIN/GLOBULIN RATIO 0.6 (1.0-1.7); ALK PHOS 115 U/L (46-116); ALT (SGPT) 32 U/L (14-59); AST (SGOT) 39 U/L (15-37); TOTAL BILIRUBIN 0.5 mg/dL (0.2-1.0); TOTAL PROTEIN 7.1 g/dL (6.4-8.2)
[2017-12-11] MEDS ORDERED: ONDANSETRON PF 4 MG/2 ML VIAL. IV ×2 (14:15)
[2017-12-11] MEDS: DIPHTH,PERTUSS(ACELL),TET TOX 0.5 ML DISP.SYRIN. VAX IM ×2 (14:20)
[2017-12-11] MEDS: IV NORMAL SALINE 1000ML BAG 1,000 ML IV ×2 (14:29)
[2017-12-11] MEDS ORDERED: MAGNESIUM HYDROXIDE 2,400 MG/30 ML ORAL.SUSP. PO ×2 (17:30)
[2017-12-11] MEDS ORDERED: QUEtiapine 25 MG TABLET. PO ×2 (21:00)
[2017-12-11] MEDS: FAMOTIDINE 20 MG TABLET. PO ×2 (21:08)
[2017-12-11] MEDS: QUEtiapine 25 MG TABLET. PO ×2 (21:08)
[2017-12-11] MEDS: DOCUSATE SODIUM 100 MG CAPSULE. PO ×2 (21:08)
[2017-12-11] MEDS: ATORVASTATIN CALCIUM 10 MG TABLET. PO ×2 (21:08)
[2017-12-11] MEDS: levETIRAcetam 500 MG TABLET PO ×2 (21:08)
[2017-12-11] MEDS: HALOPERIDOL LACTATE 5 MG/ML VIAL. IM ×2 (21:09)
[2017-12-12 00:14] LABS: MRSA BY PCR Negative (Negative)
[2017-12-12] MEDS: IV NORMAL SALINE 1000ML BAG 1,000 ML IV ×2 (03:31)
[2017-12-12 04:40] LABS: ADD MAN DIFF? NO
[2017-12-12 04:50] LABS: BASO % 0 % (0-3); EOS # 0.2 x10^3/uL (0.0-0.7); EOS % 2 % (0-3); HEMATOCRIT 33.6 % (36.0-47.0); HEMOGLOBIN 11.2 g/dL (12.0-15.5); LYMPH # 1.8 x10^3/uL (1.0-4.8); LYMPH % 24 % (24-48); MEAN CORPUSCULAR HEMOGLOBIN 32 pg (25-35); MEAN CORPUSCULAR HGB CONC 33 g/dL (31-37); MEAN CORPUSCULAR VOLUME 96 fL (79-100); MONO # 0.6 x10^3/uL (0.0-1.1); MONO % 8 % (0-9); NEUT # 5.1 x10^3uL (1.8-7.7); NEUT % 66 % (31-73); PLATELET COUNT 163 x10^3/uL (140-400); RED CELL DISTRIBUTION WIDTH 14.4 % (11.5-14.5); WHITE BLOOD COUNT 7.8 x10^3/uL (4.0-11.0)
[2017-12-12 05:06] LABS: ANION GAP 9 (6-14); BLOOD UREA NITROGEN 16 mg/dL (7-20); CALCIUM 8.7 mg/dL (8.5-10.1); CARBON DIOXIDE 24 mmol/L (21-32); CHLORIDE 106 mmol/L (98-107); CREATININE 0.9 mg/dL (0.6-1.0); GFR 59.1; GLUCOSE 102 mg/dL (70-99); POTASSIUM 3.6 mmol/L (3.5-5.1); SODIUM 139 mmol/L (136-145)
[2017-12-12 05:13] LABS: INR 1.3 (0.8-1.1); PROTHROMBIN TIME PATIENT 15.1 SEC (11.7-14.0)
[2017-12-12] MEDS: MULTIVITAMIN with MINERAL TABLET. PO ×2 (09:01)
[2017-12-12] MEDS: CHOLECALCIFEROL (VITAMIN D3) 1,000 UNIT TABLET PO ×2 (09:01)
[2017-12-12] MEDS: FAMOTIDINE 20 MG TABLET. PO ×4 (09:02→19:40)
[2017-12-12] MEDS: LOSARTAN POTASSIUM 50 MG TABLET. PO ×2 (09:02)
[2017-12-12] MEDS: levETIRAcetam 500 MG TABLET PO ×4 (09:02→19:40)
[2017-12-12] MEDS: DOCUSATE SODIUM 100 MG CAPSULE. PO ×4 (09:02→19:40)
[2017-12-12] MEDS: ALLOPURINOL 300 MG TABLET. PO ×2 (09:02)
[2017-12-12] MEDS: amLODIPine BESYLATE 10 MG TABLET PO ×2 (09:02)
[2017-12-12] MEDS: SERTRALINE 50 MG TABLET. PO ×2 (09:02)
[2017-12-12] MEDS: LEVOTHYROXINE 75 MCG TABLET PO ×4 (09:02→19:41)
[2017-12-12] MEDS: ATORVASTATIN CALCIUM 10 MG TABLET. PO ×2 (19:40)
[2017-12-12] MEDS: QUEtiapine 25 MG TABLET. PO ×2 (19:41)
[2017-12-13 04:48] LABS: ADD MAN DIFF? NO
[2017-12-13 04:53] LABS: BASO # 0.1 x10^3/uL (0.0-0.2); BASO % 1 % (0-3); EOS # 0.1 x10^3/uL (0.0-0.7); EOS % 1 % (0-3); HEMATOCRIT 35.2 % (36.0-47.0); HEMOGLOBIN 11.5 g/dL (12.0-15.5); LYMPH # 1.8 x10^3/uL (1.0-4.8); LYMPH % 20 % (24-48); MEAN CORPUSCULAR HEMOGLOBIN 31 pg (25-35); MEAN CORPUSCULAR HGB CONC 33 g/dL (31-37); MEAN CORPUSCULAR VOLUME 95 fL (79-100); MONO # 0.8 x10^3/uL (0.0-1.1); MONO % 9 % (0-9); NEUT # 6.1 x10^3uL (1.8-7.7); NEUT % 69 % (31-73); PLATELET COUNT 176 x10^3/uL (140-400); RED BLOOD COUNT 3.69 x10^6/uL (3.50-5.40); WHITE BLOOD COUNT 8.8 x10^3/uL (4.0-11.0)
[2017-12-13 05:38] LABS: ANION GAP 11 (6-14); BLOOD UREA NITROGEN 14 mg/dL (7-20); CALCIUM 8.3 mg/dL (8.5-10.1); CARBON DIOXIDE 24 mmol/L (21-32); CHLORIDE 104 mmol/L (98-107); CREATININE 0.9 mg/dL (0.6-1.0); GFR 59.1; GLUCOSE 100 mg/dL (70-99); POTASSIUM 3.5 mmol/L (3.5-5.1); SODIUM 139 mmol/L (136-145)
[2017-12-13] MEDS: ACETAMINOPHEN 325 MG TABLET. PO ×2 (08:27)
[2017-12-13] MEDS: CHOLECALCIFEROL (VITAMIN D3) 1,000 UNIT TABLET PO ×2 (08:27)
[2017-12-13] MEDS: ALLOPURINOL 300 MG TABLET. PO ×2 (08:27)
[2017-12-13] MEDS: SERTRALINE 50 MG TABLET. PO ×2 (08:27)
[2017-12-13] MEDS: LOSARTAN POTASSIUM 50 MG TABLET. PO ×2 (08:28)
[2017-12-13] MEDS: DOCUSATE SODIUM 100 MG CAPSULE. PO ×4 (08:28→21:17)
[2017-12-13] MEDS: levETIRAcetam 500 MG TABLET PO ×4 (08:28→21:17)
[2017-12-13] MEDS: MULTIVITAMIN with MINERAL TABLET. PO ×2 (08:29)
[2017-12-13] MEDS: FAMOTIDINE 20 MG TABLET. PO ×4 (08:29→21:17)
[2017-12-13] MEDS: amLODIPine BESYLATE 10 MG TABLET PO ×2 (08:29)
[2017-12-13] MEDS: CIPROFLOXACIN HCL 250 MG TABLET. PO ×2 (21:17)
[2017-12-13] MEDS: LACTOBACILLUS RHAMNOSUS GG 1 CAPSULE. PO ×2 (21:17)
[2017-12-13] MEDS: QUEtiapine 25 MG TABLET. PO ×2 (21:17)
[2017-12-13] MEDS: ATORVASTATIN CALCIUM 10 MG TABLET. PO ×2 (21:17)
[2017-12-14] MEDS: LEVOTHYROXINE 75 MCG TABLET PO ×2 (05:57)
[2017-12-14] MEDS: DOCUSATE SODIUM 100 MG CAPSULE. PO ×2 (08:23)
[2017-12-14] MEDS: CHOLECALCIFEROL (VITAMIN D3) 1,000 UNIT TABLET PO ×2 (08:23)
[2017-12-14] MEDS: LACTOBACILLUS RHAMNOSUS GG 1 CAPSULE. PO ×2 (08:23)
[2017-12-14] MEDS: levETIRAcetam 500 MG TABLET PO ×2 (08:23)
[2017-12-14] MEDS: amLODIPine BESYLATE 10 MG TABLET PO ×2 (08:24)
[2017-12-14] MEDS: FAMOTIDINE 20 MG TABLET. PO ×2 (08:24)
[2017-12-14] MEDS: LOSARTAN POTASSIUM 50 MG TABLET. PO ×2 (08:25)
[2017-12-14] MEDS: SERTRALINE 50 MG TABLET. PO ×2 (08:25)
[2017-12-14] MEDS: CIPROFLOXACIN HCL 250 MG TABLET. PO ×2 (08:25)
[2017-12-14] MEDS: ALLOPURINOL 300 MG TABLET. PO ×2 (08:25)
[2017-12-14] MEDS: MULTIVITAMIN with MINERAL TABLET. PO ×2 (08:25)
[2017-12-14] MEDS: ACETAMINOPHEN 325 MG TABLET. PO ×2 (08:29)
[2017-12-14 13:53] LABS: INFLUENZA A PATIENT NEGATIVE (NEGATIVE); INFLUENZA B PATIENT NEGATIVE (NEGATIVE); OBC FLU VALID
== END 2017-12-14 17:45 | disposition home or self-care (01) | DRG 86 ==
LOC: 4 NORTH 12-12 16:18 → ER 10:15 → 1 WEST ICU 12:30
DX: S06.300A Unspecified focal traumatic brain injury without loss of consciousness, initial encounter (principal); J90 Pleural effusion, not elsewhere classified; B96.1 Klebsiella pneumoniae [K. pneumoniae] as the cause of diseases classified elsewhere; G30.9 Alzheimer's disease, unspecified; F01.50 Vascular dementia, unspecified severity, without behavioral disturbance, psychotic disturbance, mood disturbance, and anxiety; N39.0 Urinary tract infection, site not specified; G40.909 Epilepsy, unspecified, not intractable, without status epilepticus; F32.9 Major depressive disorder, single episode, unspecified; E78.00 Pure hypercholesterolemia, unspecified; I10 Essential (primary) hypertension; E03.9 Hypothyroidism, unspecified; M10.9 Gout, unspecified; M15.9 Polyosteoarthritis, unspecified; E78.5 Hyperlipidemia, unspecified; Z66 Do not resuscitate; Y93.89 Activity, other specified; Y92.89 Other specified places as the place of occurrence of the external cause; Y99.8 Other external cause status; Z86.718 Personal history of other venous thrombosis and embolism; Z86.73 Personal history of transient ischemic attack (TIA), and cerebral infarction without residual deficits; Z90.710 Acquired absence of both cervix and uterus; Z88.0 Allergy status to penicillin; Z88.2 Allergy status to sulfonamides; Z88.8 Allergy status to other drugs, medicaments and biological substances; Z91.041 Radiographic dye allergy status; Z99.3 Dependence on wheelchair; Z90.49 Acquired absence of other specified parts of digestive tract; Z87.891 Personal history of nicotine dependence
CPT/HCPCS: 36415; 70450; 71045; 72125; 73030; 80048; 80053; 81001; 85025; 85610; 87086; 87186; 87641; 87804; 87804-59; 90471; 90715; 93005; 97162-GP; 97167-GO; 97530-GP; 97535-GO; 99285; 99285-25; J1630; J7030

== ENCOUNTER 2017-12-14 22:55 | Emergency (ER) | payer OTHER ==
[2017-12-15 00:32] LABS: ADD MAN DIFF? NO
[2017-12-15 00:37] LABS: BASO # 0.1 x10^3/uL (0.0-0.2); BASO % 1 % (0-3); EOS # 0.2 x10^3/uL (0.0-0.7); EOS % 2 % (0-3); HEMATOCRIT 35.5 % (36.0-47.0); LYMPH % 20 % (24-48); MEAN CORPUSCULAR HEMOGLOBIN 32 pg (25-35); MEAN CORPUSCULAR HGB CONC 34 g/dL (31-37); MEAN CORPUSCULAR VOLUME 95 fL (79-100); MONO # 0.7 x10^3/uL (0.0-1.1); MONO % 7 % (0-9); NEUT % 70 % (31-73); PLATELET COUNT 276 x10^3/uL (140-400); RED BLOOD COUNT 3.74 x10^6/uL (3.50-5.40); RED CELL DISTRIBUTION WIDTH 14.2 % (11.5-14.5)
[2017-12-15 00:49] LABS: ANION GAP 10 (6-14); BLOOD UREA NITROGEN 18 mg/dL (7-20); BUN/CREATININE RATIO 18 (6-20); CALCIUM 8.9 mg/dL (8.5-10.1); CARBON DIOXIDE 27 mmol/L (21-32); CHLORIDE 106 mmol/L (98-107); GFR 52.3; GLUCOSE 117 mg/dL (70-99); POTASSIUM 3.9 mmol/L (3.5-5.1); SODIUM 143 mmol/L (136-145)
[2017-12-15 00:54] LABS: ALBUMIN 2.5 g/dL (3.4-5.0); ALBUMIN/GLOBULIN RATIO 0.5 (1.0-1.7); ALK PHOS 160 U/L (46-116); ALT (SGPT) 38 U/L (14-59); AST (SGOT) 41 U/L (15-37); TOTAL BILIRUBIN 0.6 mg/dL (0.2-1.0); TOTAL PROTEIN 7.3 g/dL (6.4-8.2)
[2017-12-15] MEDS ORDERED: HYDROcodone/APAP 5/325MG 1 TAB TABLET PO ×2 (01:45)
== END 2017-12-15 03:23 | disposition home or self-care (01) ==
LOC: ER 22:55
DX: S16.1XXA Strain of muscle, fascia and tendon at neck level, initial encounter (principal); E03.9 Hypothyroidism, unspecified; E78.00 Pure hypercholesterolemia, unspecified; F03.90 Unspecified dementia, unspecified severity, without behavioral disturbance, psychotic disturbance, mood disturbance, and anxiety; M10.9 Gout, unspecified; G40.909 Epilepsy, unspecified, not intractable, without status epilepticus; I10 Essential (primary) hypertension; Z86.73 Personal history of transient ischemic attack (TIA), and cerebral infarction without residual deficits; Z95.0 Presence of cardiac pacemaker; Z88.0 Allergy status to penicillin; Z88.2 Allergy status to sulfonamides; Z88.5 Allergy status to narcotic agent; Z88.6 Allergy status to analgesic agent; Z88.8 Allergy status to other drugs, medicaments and biological substances; Z91.041 Radiographic dye allergy status; W18.39XA Other fall on same level, initial encounter; Y93.89 Activity, other specified; Y99.8 Other external cause status; Y92.89 Other specified places as the place of occurrence of the external cause
CPT/HCPCS: 36415; 70450; 72125; 80053; 85025; 93005; 99285-25

== ENCOUNTER 2017-12-15 16:30 | Emergency (ER) | payer OTHER ==
[2017-12-15 17:15] LABS: BILIRUBIN,URINE NEGATIVE (NEG); CLARITY,URINE CLEAR; COLOR,URINE AMBER; GLUCOSE,URINE NEGATIVE (NEG); NITRITE,URINE NEGATIVE (NEG); PROTEIN,URINE NEGATIVE (NEG-TRACE)
[2017-12-15 17:30] LABS: BACTERIA,URINE 0 /HPF (0-FEW); HYALINE CASTS, URINE OCCASIONAL /HPF; RBC,URINE 0 /HPF (0-2); SQUAMOUS EPITHELIAL CELL,UR OCC /LPF
[2017-12-15 17:37] LABS: ADD MAN DIFF? NO
[2017-12-15] MEDS: IV NORMAL SALINE 500ML BAG 500 ML IV ×2 (17:38)
[2017-12-15 17:41] LABS: BASO # 0.1 x10^3/uL (0.0-0.2); BASO % 1 % (0-3); EOS # 0.3 x10^3/uL (0.0-0.7); EOS % 4 % (0-3); HEMATOCRIT 36.7 % (36.0-47.0); LYMPH # 2.3 x10^3/uL (1.0-4.8); LYMPH % 29 % (24-48); MEAN CORPUSCULAR HEMOGLOBIN 31 pg (25-35); MEAN CORPUSCULAR HGB CONC 33 g/dL (31-37); MEAN CORPUSCULAR VOLUME 96 fL (79-100); MONO # 0.6 x10^3/uL (0.0-1.1); MONO % 7 % (0-9); NEUT # 4.7 x10^3uL (1.8-7.7); NEUT % 59 % (31-73); PLATELET COUNT 307 x10^3/uL (140-400); RED BLOOD COUNT 3.83 x10^6/uL (3.50-5.40); RED CELL DISTRIBUTION WIDTH 14.3 % (11.5-14.5)
[2017-12-15 18:54] LABS: ANION GAP 9 (6-14); BLOOD UREA NITROGEN 17 mg/dL (7-20); BUN/CREATININE RATIO 19 (6-20); CALCIUM 9.1 mg/dL (8.5-10.1); CARBON DIOXIDE 26 mmol/L (21-32); CHLORIDE 106 mmol/L (98-107); CREATININE 0.9 mg/dL (0.6-1.0); GFR 59.1; GLUCOSE 109 mg/dL (70-99); POTASSIUM 3.7 mmol/L (3.5-5.1); SODIUM 141 mmol/L (136-145)
[2017-12-15 19:02] LABS: ALBUMIN 2.5 g/dL (3.4-5.0); ALBUMIN/GLOBULIN RATIO 0.5 (1.0-1.7); ALK PHOS 143 U/L (46-116); ALT (SGPT) 32 U/L (14-59); AST (SGOT) 27 U/L (15-37); LIPASE 127 U/L (73-393); TOTAL BILIRUBIN 0.4 mg/dL (0.2-1.0); TOTAL PROTEIN 7.2 g/dL (6.4-8.2)
[2017-12-15 19:05] LABS: NT-PRO BNP 1316 pg/mL (0-449)
[2017-12-15 19:27] LABS: TROPONINI < 0.017 ng/mL (0.000-0.055)
== END 2017-12-15 21:09 | disposition home or self-care (01) ==
LOC: ER 16:30
DX: G51.0 Bell's palsy (principal); F03.90 Unspecified dementia, unspecified severity, without behavioral disturbance, psychotic disturbance, mood disturbance, and anxiety; E78.00 Pure hypercholesterolemia, unspecified; E03.9 Hypothyroidism, unspecified; I10 Essential (primary) hypertension; Z86.73 Personal history of transient ischemic attack (TIA), and cerebral infarction without residual deficits; Z90.710 Acquired absence of both cervix and uterus; Z95.0 Presence of cardiac pacemaker; Z95.5 Presence of coronary angioplasty implant and graft; Z88.0 Allergy status to penicillin; Z88.2 Allergy status to sulfonamides; Z88.5 Allergy status to narcotic agent; Z91.041 Radiographic dye allergy status; Z88.6 Allergy status to analgesic agent; Z88.8 Allergy status to other drugs, medicaments and biological substances
CPT/HCPCS: 36415; 70450; 71045; 72125; 80053; 81001; 83690; 83735; 83880; 84484; 85025; 87086; 93005; 96360; 99285-25; J7040

== ENCOUNTER 2017-12-18 19:26 | Emergency (ER) | payer OTHER ==
[2017-12-18 20:26] LABS: AGAP ISTAT 18 mmol/L (6-14); BUN ISTAT 19 mg/dL (8-26); CHLORIDE ISTAT 104 mmol/L (98-110); CREATININE ISTAT 0.9 mg/dL (0.5-1.4); GLUCOSE ISTAT 124 mg/dL (70-99); HEMATOCRIT ISTAT 35 % (36-40); HEMOGLOBIN ISTAT 11.9 g/dL (12-15); ION CA ISTAT 1.14 mmol/L (1.13-1.32); POTASSIUM ISTAT 3.5 mmol/L (3.5-5.0); SODIUM ISTAT 143 mmol/L (135-145); TOT CO2 ISTAT 25 mmol/L (23-32)
== END 2017-12-18 21:03 | disposition home or self-care (01) ==
LOC: ER 19:26
DX: S09.90XA Unspecified injury of head, initial encounter (principal); E78.00 Pure hypercholesterolemia, unspecified; E03.9 Hypothyroidism, unspecified; F03.90 Unspecified dementia, unspecified severity, without behavioral disturbance, psychotic disturbance, mood disturbance, and anxiety; I10 Essential (primary) hypertension; M10.9 Gout, unspecified; Z86.73 Personal history of transient ischemic attack (TIA), and cerebral infarction without residual deficits; Z86.718 Personal history of other venous thrombosis and embolism; Z95.0 Presence of cardiac pacemaker; Z88.0 Allergy status to penicillin; Z88.2 Allergy status to sulfonamides; Z88.5 Allergy status to narcotic agent; Z88.6 Allergy status to analgesic agent; Z91.041 Radiographic dye allergy status; W18.39XA Other fall on same level, initial encounter; Y93.89 Activity, other specified; Y99.8 Other external cause status; Y92.89 Other specified places as the place of occurrence of the external cause
CPT/HCPCS: 36415; 70450; 71045; 72125; 72170; 80047; 85014; 85018; 93005; 99284-25; 99285-25

== ENCOUNTER 2018-01-09 10:07 | Emergency (ER) | payer OTHER ==
[2018-01-09 11:17] LABS: ADD MAN DIFF? NO
[2018-01-09 11:20] LABS: BASO # 0.1 x10^3/uL (0.0-0.2); BASO % 2 % (0-3); EOS # 0.6 x10^3/uL (0.0-0.7); EOS % 9 % (0-3); HEMATOCRIT 37.5 % (36.0-47.0); HEMOGLOBIN 12.3 g/dL (12.0-15.5); LYMPH # 2.4 x10^3/uL (1.0-4.8); LYMPH % 35 % (24-48); MEAN CORPUSCULAR HEMOGLOBIN 31 pg (25-35); MEAN CORPUSCULAR HGB CONC 33 g/dL (31-37); MEAN CORPUSCULAR VOLUME 94 fL (79-100); MONO # 0.5 x10^3/uL (0.0-1.1); MONO % 8 % (0-9); NEUT # 3.3 x10^3uL (1.8-7.7); NEUT % 48 % (31-73); PLATELET COUNT 178 x10^3/uL (140-400); RED CELL DISTRIBUTION WIDTH 15.1 % (11.5-14.5); WHITE BLOOD COUNT 6.9 x10^3/uL (4.0-11.0)
[2018-01-09 11:40] LABS: ANION GAP 7 (6-14); BLOOD UREA NITROGEN 18 mg/dL (7-20); BUN/CREATININE RATIO 18 (6-20); CALCIUM 9.3 mg/dL (8.5-10.1); CARBON DIOXIDE 30 mmol/L (21-32); CHLORIDE 108 mmol/L (98-107); GFR 52.3; GLUCOSE 95 mg/dL (70-99); POTASSIUM 4.6 mmol/L (3.5-5.1); SODIUM 145 mmol/L (136-145)
[2018-01-09 11:46] LABS: ALBUMIN 2.9 g/dL (3.4-5.0); ALBUMIN/GLOBULIN RATIO 0.6 (1.0-1.7); ALK PHOS 85 U/L (46-116); ALT (SGPT) 17 U/L (14-59); AST (SGOT) 26 U/L (15-37); TOTAL BILIRUBIN 0.4 mg/dL (0.2-1.0); TOTAL PROTEIN 7.4 g/dL (6.4-8.2)
== END 2018-01-09 12:32 | disposition home or self-care (01) ==
LOC: ER 10:07
DX: S16.1XXA Strain of muscle, fascia and tendon at neck level, initial encounter (principal); S00.83XA Contusion of other part of head, initial encounter; E03.9 Hypothyroidism, unspecified; E78.00 Pure hypercholesterolemia, unspecified; F03.90 Unspecified dementia, unspecified severity, without behavioral disturbance, psychotic disturbance, mood disturbance, and anxiety; I10 Essential (primary) hypertension; M10.9 Gout, unspecified; Z95.0 Presence of cardiac pacemaker; Z86.73 Personal history of transient ischemic attack (TIA), and cerebral infarction without residual deficits; Z86.718 Personal history of other venous thrombosis and embolism; Z88.0 Allergy status to penicillin; Z88.2 Allergy status to sulfonamides; Z88.5 Allergy status to narcotic agent; Z88.8 Allergy status to other drugs, medicaments and biological substances; Z91.041 Radiographic dye allergy status; Z88.6 Allergy status to analgesic agent; W05.0XXA Fall from non-moving wheelchair, initial encounter; Y93.89 Activity, other specified; Y99.8 Other external cause status; Y92.89 Other specified places as the place of occurrence of the external cause
CPT/HCPCS: 36415; 70450; 70486; 72125; 80053; 85025; 99285-25

== ENCOUNTER 2018-03-16 07:00 | Inpatient (IN) | payer OTHER ==
[2018-03-16 07:22] LABS: ADD MAN DIFF? NO
[2018-03-16 07:29] LABS: BASO # 0.1 x10^3/uL (0.0-0.2); BASO % 1 % (0-3); EOS # 0.2 x10^3/uL (0.0-0.7); EOS % 3 % (0-3); HEMATOCRIT 38.2 % (36.0-47.0); LYMPH % 30 % (24-48); MEAN CORPUSCULAR HEMOGLOBIN 32 pg (25-35); MEAN CORPUSCULAR HGB CONC 34 g/dL (31-37); MEAN CORPUSCULAR VOLUME 95 fL (79-100); MONO # 0.5 x10^3/uL (0.0-1.1); MONO % 7 % (0-9); NEUT # 4.1 x10^3uL (1.8-7.7); NEUT % 60 % (31-73); PLATELET COUNT 181 x10^3/uL (140-400); RED BLOOD COUNT 4.03 x10^6/uL (3.50-5.40); RED CELL DISTRIBUTION WIDTH 17.2 % (11.5-14.5); WHITE BLOOD COUNT 6.8 x10^3/uL (4.0-11.0)
[2018-03-16 07:39] LABS: LACTIC ACID 0.9 mmol/L (0.4-2.0)
[2018-03-16 07:42] LABS: BILIRUBIN,URINE NEGATIVE (NEG); CLARITY,URINE CLEAR; COLOR,URINE YELLOW; GLUCOSE,URINE NEGATIVE (NEG); NITRITE,URINE POSITIVE (NEG); PROTEIN,URINE NEGATIVE (NEG-TRACE); UROBILINOGEN,URINE 0.2 mg/dL (0.2 mg/dL)
[2018-03-16 07:43] LABS: TROPONINI < 0.017 ng/mL (0.000-0.055)
[2018-03-16 07:44] LABS: ANION GAP 8 (6-14); BLOOD UREA NITROGEN 19 mg/dL (7-20); BUN/CREATININE RATIO 19 (6-20); CALCIUM 8.9 mg/dL (8.5-10.1); CARBON DIOXIDE 29 mmol/L (21-32); CHLORIDE 106 mmol/L (98-107); GFR 52.2; GLUCOSE 94 mg/dL (70-99); POTASSIUM 4.1 mmol/L (3.5-5.1); SODIUM 143 mmol/L (136-145)
[2018-03-16 07:49] LABS: NT-PRO BNP 696 pg/mL (0-449)
[2018-03-16 07:49] LABS: CKMB MASS 0.6 ng/mL (0.0-3.6); CREATINE KINASE 63 U/L (26-192)
[2018-03-16 07:54] LABS: BACTERIA,URINE MANY /HPF (0-FEW)
[2018-03-16 07:57] LABS: ALBUMIN 3.1 g/dL (3.4-5.0); ALBUMIN/GLOBULIN RATIO 0.6 (1.0-1.7); ALK PHOS 66 U/L (46-116); ALT (SGPT) 19 U/L (14-59); AST (SGOT) 27 U/L (15-37); MAGNESIUM 1.9 mg/dL (1.8-2.4); TOTAL BILIRUBIN 0.5 mg/dL (0.2-1.0)
[2018-03-16 08:02] LABS: VAL ACID 25 mcg/mL (50-100)
[2018-03-16] MEDS: DIPHTH,PERTUSS(ACELL),TET TOX 0.5 ML DISP.SYRIN. VAX IM (09:01)
[2018-03-16] MEDS ORDERED: IPRATRPIUM/ALBUTEROL 0.5/2.5MG 3 ML NEBU. NEB (12:30)
[2018-03-16] MEDS ORDERED: ACETAMINOPHEN 325 MG TABLET. PO (12:30)
[2018-03-16] MEDS ORDERED: ALBUTEROL SULFATE 2.5 MG/3 ML NEBU. NEB (12:30)
[2018-03-16] MEDS ORDERED: MAGNESIUM HYDROXIDE 2,400 MG/30 ML ORAL.SUSP. PO (12:30)
[2018-03-16] MEDS: ALLOPURINOL 300 MG TABLET. PO (13:00)
[2018-03-16] MEDS: ASPIRIN 325 MG TABLET PO (13:00)
[2018-03-16] MEDS: amLODIPine BESYLATE 10 MG TABLET PO (13:00)
[2018-03-16] MEDS: levETIRAcetam 500 MG TABLET PO ×2 (13:00→21:07)
[2018-03-16] MEDS: DOCUSATE SODIUM 100 MG CAPSULE. PO ×2 (13:00→21:07)
[2018-03-16] MEDS: CHOLECALCIFEROL (VITAMIN D3) 5,000 UNIT CAPSULE PO (13:00)
[2018-03-16] MEDS: LOSARTAN POTASSIUM 50 MG TABLET. PO (13:00)
[2018-03-16] MEDS: MULTIVITAMIN with MINERAL TABLET. PO (13:00)
[2018-03-16] MEDS: SERTRALINE 50 MG TABLET. PO (13:00)
[2018-03-16] MEDS: LEVOTHYROXINE 75 MCG TABLET PO (13:00)
[2018-03-16] MEDS: IV NORMAL SALINE 1000ML BAG 1,000 ML IV (16:26)
[2018-03-16] MEDS ORDERED: NON FORMULARY ITEM (Melatonin 3 MG) PO (21:00)
[2018-03-16] MEDS: ATORVASTATIN CALCIUM 10 MG TABLET. PO (21:07)
[2018-03-16] MEDS: FAMOTIDINE 20 MG TABLET. PO (21:10)
[2018-03-17] MEDS: LEVOTHYROXINE 75 MCG TABLET PO (08:00)
[2018-03-17] MEDS: MULTIVITAMIN with MINERAL TABLET. PO (08:29)
[2018-03-17] MEDS: SERTRALINE 50 MG TABLET. PO (08:29)
[2018-03-17] MEDS: CHOLECALCIFEROL (VITAMIN D3) 5,000 UNIT CAPSULE PO (08:30)
[2018-03-17] MEDS: DOCUSATE SODIUM 100 MG CAPSULE. PO ×2 (08:30→20:13)
[2018-03-17] MEDS: DIVALPROEX EXTENDED RELEASE 250 MG TAB.ER.24H. PO (08:30)
[2018-03-17] MEDS: ALLOPURINOL 300 MG TABLET. PO (08:30)
[2018-03-17] MEDS: levETIRAcetam 500 MG TABLET PO ×2 (08:30→20:13)
[2018-03-17] MEDS: amLODIPine BESYLATE 5 MG TABLET PO (08:34)
[2018-03-17] MEDS: LOSARTAN POTASSIUM 50 MG TABLET. PO (08:34)
[2018-03-17] MEDS: ASPIRIN 325 MG TABLET PO (08:35)
[2018-03-17] MEDS ORDERED: CHOLECALCIFEROL (VITAMIN D3) 1,000 UNIT TABLET PO (09:00)
[2018-03-17] MEDS: cefTRIAXone IV Push 1 GM VIAL. IVP (10:00)
[2018-03-17] MEDS: ATORVASTATIN CALCIUM 10 MG TABLET. PO (20:13)
[2018-03-17] MEDS: LACTOBACILLUS RHAMNOSUS GG 1 CAPSULE. PO (20:13)
[2018-03-17] MEDS: FAMOTIDINE 20 MG TABLET. PO (20:13)
[2018-03-18] MEDS: LEVOTHYROXINE 75 MCG TABLET PO (06:08)
[2018-03-18] MEDS: DOCUSATE SODIUM 100 MG CAPSULE. PO ×2 (09:08→20:41)
[2018-03-18] MEDS: LACTOBACILLUS RHAMNOSUS GG 1 CAPSULE. PO ×2 (09:09→20:41)
[2018-03-18] MEDS: LOSARTAN POTASSIUM 50 MG TABLET. PO (09:09)
[2018-03-18] MEDS: levETIRAcetam 500 MG TABLET PO ×2 (09:10→20:42)
[2018-03-18] MEDS: DIVALPROEX EXTENDED RELEASE 250 MG TAB.ER.24H. PO (09:10)
[2018-03-18] MEDS: MULTIVITAMIN with MINERAL TABLET. PO (09:11)
[2018-03-18] MEDS: CHOLECALCIFEROL (VITAMIN D3) 5,000 UNIT CAPSULE PO (09:11)
[2018-03-18] MEDS: amLODIPine BESYLATE 5 MG TABLET PO (09:11)
[2018-03-18] MEDS: SERTRALINE 50 MG TABLET. PO (09:11)
[2018-03-18] MEDS: ALLOPURINOL 300 MG TABLET. PO (09:12)
[2018-03-18] MEDS: ASPIRIN 325 MG TABLET PO (09:13)
[2018-03-18] MEDS: cefTRIAXone IV Push 1 GM VIAL. IVP (11:03)
[2018-03-18] MEDS: ATORVASTATIN CALCIUM 10 MG TABLET. PO (20:41)
[2018-03-18] MEDS: FAMOTIDINE 20 MG TABLET. PO (20:42)
[2018-03-19] MEDS: LEVOTHYROXINE 75 MCG TABLET PO (06:14)
[2018-03-19] MEDS: levETIRAcetam 500 MG TABLET PO (09:31)
[2018-03-19] MEDS: LACTOBACILLUS RHAMNOSUS GG 1 CAPSULE. PO (09:32)
[2018-03-19] MEDS: LOSARTAN POTASSIUM 50 MG TABLET. PO (09:32)
[2018-03-19] MEDS: SERTRALINE 50 MG TABLET. PO (09:33)
[2018-03-19] MEDS: DOCUSATE SODIUM 100 MG CAPSULE. PO (09:33)
[2018-03-19] MEDS: amLODIPine BESYLATE 5 MG TABLET PO (09:33)
[2018-03-19] MEDS: ALLOPURINOL 300 MG TABLET. PO (09:33)
[2018-03-19] MEDS: MULTIVITAMIN with MINERAL TABLET. PO (09:33)
[2018-03-19] MEDS: ASPIRIN 325 MG TABLET PO (09:33)
[2018-03-19] MEDS: CHOLECALCIFEROL (VITAMIN D3) 5,000 UNIT CAPSULE PO (09:33)
[2018-03-19] MEDS: DIVALPROEX EXTENDED RELEASE 250 MG TAB.ER.24H. PO (09:34)
[2018-03-19] MEDS: cefTRIAXone IV Push 1 GM VIAL. IVP (13:35)
== END 2018-03-19 17:30 | DRG 604 ==
LOC: ER 07:00 → 6 SOUTH 09:55
DX: S00.83XA Contusion of other part of head, initial encounter (principal); G93.41 Metabolic encephalopathy; N39.0 Urinary tract infection, site not specified; F03.90 Unspecified dementia, unspecified severity, without behavioral disturbance, psychotic disturbance, mood disturbance, and anxiety; E03.9 Hypothyroidism, unspecified; B96.20 Unspecified Escherichia coli [E. coli] as the cause of diseases classified elsewhere; W18.39XA Other fall on same level, initial encounter; M19.90 Unspecified osteoarthritis, unspecified site; E78.5 Hyperlipidemia, unspecified; F32.9 Major depressive disorder, single episode, unspecified; M10.9 Gout, unspecified; I10 Essential (primary) hypertension; S00.211A Abrasion of right eyelid and periocular area, initial encounter; Z88.0 Allergy status to penicillin; Z88.2 Allergy status to sulfonamides; Z88.8 Allergy status to other drugs, medicaments and biological substances; Y93.89 Activity, other specified; Y92.128 Other place in nursing home as the place of occurrence of the external cause; Y99.8 Other external cause status; Z82.49 Family history of ischemic heart disease and other diseases of the circulatory system; Z86.73 Personal history of transient ischemic attack (TIA), and cerebral infarction without residual deficits; Z90.710 Acquired absence of both cervix and uterus; Z91.81 History of falling; Z95.0 Presence of cardiac pacemaker; Z86.718 Personal history of other venous thrombosis and embolism; Z79.01 Long term (current) use of anticoagulants
CPT/HCPCS: 36415; 51701; 70450; 71045; 72125; 72170; 80053; 80164; 81001; 82553; 83605; 83735; 83880; 84484; 85025; 87086; 87186; 90471; 90715; 93005; 96365; 96366; 97161-GP; 97166-GO; 99285; 99285-25; J0690; J0696; J7030

== ENCOUNTER 2018-08-06 14:26 | Emergency (ER) | payer OTHER ==
[~2018-08-06] VITALS: Ht 157.5 cm; Wt 75.7 kg
[~2018-08-06 14:26] MED LIST changes: +ALBU2.5V14 NEB; -AMLO2.5T PO; +AMLO2.5T3 PO; +AMLO5TAB7 PO; +AMOX1TAB58 PO; +ASPI81TA50 PO; +CHOL10003 PO; +CHOL500016 PO; +DIVA500T17 PO; +FAMO-63 PO; +GUAI600T47 PO; +IPRA3AMP29 NEB; +LACT1CAP19 PO; +LOSA100T7 PO; +MELA3TAB2 PO; +MULT1TAB18 PO
[2018-08-06 15:48] LABS: BASO % 1 % (0-3); EOS # 0.2 x10^3/uL (0.0-0.7); EOS % 4 % (0-3); HEMATOCRIT 37.3 % (36.0-47.0); HEMOGLOBIN 12.5 g/dL (12.0-15.5); LYMPH # 2.2 x10^3/uL (1.0-4.8); LYMPH % 31 % (24-48); MEAN CORPUSCULAR HEMOGLOBIN 32 pg (25-35); MEAN CORPUSCULAR HGB CONC 34 g/dL (31-37); MEAN CORPUSCULAR VOLUME 96 fL (79-100); MONO # 0.4 x10^3/uL (0.0-1.1); MONO % 5 % (0-9); NEUT # 4.1 x10^3uL (1.8-7.7); NEUT % 59 % (31-73); PLATELET COUNT 226 x10^3/uL (140-400); RED CELL DISTRIBUTION WIDTH 14.9 % (11.5-14.5); WHITE BLOOD COUNT 6.9 x10^3/uL (4.0-11.0)
[2018-08-06 15:57] LABS: PROTHROMBIN TIME PATIENT 24.8 SEC (11.7-14.0)
[2018-08-06 16:02] LABS: CALCIUM 9.3 mg/dL (8.5-10.1); CREATININE 0.9 mg/dL (0.6-1.0); POTASSIUM 4.3 mmol/L (3.5-5.1)
[2018-08-06 16:07] LABS: ALBUMIN/GLOBULIN RATIO 0.7 (1.0-1.7); TOTAL BILIRUBIN 0.3 mg/dL (0.2-1.0); TOTAL PROTEIN 7.5 g/dL (6.4-8.2)
--- NOTE | 2018-08-06 16:17 | EKG ---
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
--- NOTE | 2018-08-06 17:18 | PHYS DOC ---
Past Medical History Past Medical History: CVA, Dementia, Depression, DVT, High Cholesterol, Hypertension, Hypothyroid, TIA, Other Additional Past Medical Histor: Gout, polyosteoarthritis; metab encephalopathy ; dysphagia; PACEMAKER Past Surgical History: Hysterectomy, Pacemaker, Other Additional Past Surgical Histo: bladder; "blood clot stent" Alcohol Use: None Drug Use: None Adult General Chief Complaint Chief Complaint: OTHER COMPLAINTS HPI HPI Patient is a 88 year old female is presenting with change in color of the leg as well as cool leg for the last week. Apparently the patient on August 03 had a venous ultrasound that was negative for DVT however the symptoms persisted so the patient was advised to come to the emergency room for evaluation brought in by ambulance history limited by dementia. According to the nursing staff I spoke with the staff thather at [facility] no other symptoms noted. There stating she is at her mental status baseline no trauma Review of Systems Review of Systems Limited by dementia Allergies Allergies Allergies Coded Allergies Type Severity Reaction Last Updated Verified Penicillins Allergy Intermediate Rash 09/28/16 Yes Sulfa (Sulfonamide Antibiotics) Allergy Intermediate 02/09/17 Yes codeine Allergy Intermediate Rash 09/28/16 Yes iodine Allergy Intermediate 02/09/17 Yes oxybutynin Allergy Intermediate 02/09/17 Yes quinapril HCl Allergy Intermediate Rash 09/28/16 Yes tramadol Allergy Intermediate 02/09/17 Yes Physical Exam Physical Exam Constitutional: Well developed, well nourished, no acute distress, non-toxic appearance. [] HENT: Normocephalic, atraumatic, bilateral external ears normal, oropharynx moist, no oral exudates, nose normal. [] Eyes: PERRLA, EOMI, conjunctiva normal, no discharge. [] Neck: Normal range of motion, no tenderness, supple, no stridor. [] Cardiovascular: Irregular no definite murmurs noted Lungs & Thorax: Bilateral breath sounds clear to auscultation [] Abdomen: Bowel sounds normal, soft, no tenderness, no masses, no pulsatile masses. [] Skin: Erythema and mottling as noted below on the left lower extremity below the kapoor mostly on the foot including the toes most prominent on the second toe Extremities: Left lower extremity is cool to the touch below the kapoor there is 1 + pedal pulse noted there is discoloration with some mottling especially of the second toe Neurologic: Alert and oriented X 2, normal motor function, normal sensory function, no focal deficits noted. [] Psychologic: Affect normal, judgement normal, mood normal. [] Current Patient Data Vital Signs Vital Signs Date Time Temp Pulse Resp B/P (MAP) Pulse Ox O2 Delivery O2 Flow Rate FiO2 08/06/18 17:45 159/116 (130) 96 Room Air 08/06/18 16:45 63 24 08/06/18 15:13 97.9 97.9 Lab Values Laboratory Tests Test 08/06/18 15:41 White Blood Count 6.9 x10^3/uL (4.0-11.0) Red Blood Count 3.90 x10^6/uL (3.50-5.40) Hemoglobin 12.5 g/dL (12.0-15.5) Hematocrit 37.3 % (36.0-47.0) Mean Corpuscular Volume 96 fL (79-100) Mean Corpuscular Hemoglobin 32 pg (25-35) Mean Corpuscular Hemoglobin Concent 34 g/dL (31-37) Red Cell Distribution Width 14.9 % (11.5-14.5) H Platelet Count 226 x10^3/uL (140-400) Neutrophils (%) (Auto) 59 % (31-73) Lymphocytes (%) (Auto) 31 % (24-48) Monocytes (%) (Auto) 5 % (0-9) Eosinophils (%) (Auto) 4 % (0-3) H Basophils (%) (Auto) 1 % (0-3) Neutrophils # (Auto) 4.1 x10^3uL (1.8-7.7) Lymphocytes # (Auto) 2.2 x10^3/uL (1.0-4.8) Monocytes # (Auto) 0.4 x10^3/uL (0.0-1.1) Eosinophils # (Auto) 0.2 x10^3/uL (0.0-0.7) Basophils # (Auto) 0.0 x10^3/uL (0.0-0.2) Prothrombin Time 24.8 SEC (11.7-14.0) H Prothrombin Time INR 2.3 (0.8-1.1) H Sodium Level 140 mmol/L (136-145) Potassium Level 4.3 mmol/L (3.5-5.1) Chloride Level 105 mmol/L (98-107) Carbon Dioxide Level 28 mmol/L (21-32) Anion Gap 7 (6-14) Blood Urea Nitrogen 21 mg/dL (7-20) H Creatinine 0.9 mg/dL (0.6-1.0) Estimated GFR (Cockcroft-Gault) 59.0 BUN/Creatinine Ratio 23 (6-20) H Glucose Level 109 mg/dL (70-99) H Calcium Level 9.3 mg/dL (8.5-10.1) Total Bilirubin 0.3 mg/dL (0.2-1.0) Aspartate Amino Transferase (AST) 24 U/L (15-37) Alanine Aminotransferase (ALT) 19 U/L (14-59) Alkaline Phosphatase 85 U/L (46-116) Troponin I Quantitative < 0.017 ng/mL (0.000-0.055) Total Protein 7.5 g/dL (6.4-8.2) Albumin 3.0 g/dL (3.4-5.0) L Albumin/Globulin Ratio 0.7 (1.0-1.7) L Laboratory Tests 08/06/18 15:41 Laboratory Tests 08/06/18 15:41 EKG EKG []EKG shows poor baseline difficult to say for sure but probably sinus rhythm as it is regular I see P waves in the lateral leads. Radiology/Procedures Radiology/Procedures [] Impressions: All vessels are biphasic, from the right common femoral artery through the calf and dorsalis pedis artery. Common femoral artery velocity is 185. Velocities from the superficial femoral artery through the dorsalis pedis artery range from 43 through 143. No areas of high-grade luminal narrowing or occlusion are identified. IMPRESSION: Diffuse biphasic waveform morphology. No sonographic evidence of focal occlusion or high-grade stenosis. Electronically signed by: Taurus Dalal MD (08/06/2018 5:32 PM) [facility] Course & Med Decision Making Course & Med Decision Making Pertinent Labs and Imaging studies reviewed. (See chart for details) []88-year-old female with the above past medical history including dementia hypertension arthritis presence of pacemaker frequent falls on Xarelto for prior history of DVT according to [facility] records who is presenting with subacute changes of her left lower extremity with cool to touch and mottled raising suspicion for peripheral arterial disease. Arterial ultrasound was performed. Patient has an iodine allergy so we did not do a CT scan. Patient does have a palpable 1+ pulse so if anything there is likely stenosis or collateral flow Final plan: Ultrasound showed no abnormality. I did talk with the daughter alisson to obtain additional history. The daughter tells me that one of the patient's feet has looked purple for several years. She could not remember which side it was so she consented to transfer for an evaluation. With this additional history in the normal ultrasound and the positive pedal pulses on examination I feel this is likely the patient's baseline. At any rate there is no acute thrombus ultrasounds I think she is safe for discharge back to the facility.Reassurance was provided.She is on Xarelto for a previous history o DVT and SHE WAS instructed to continue that. Dragon Disclaimer Dragon Disclaimer This electronic medical record was generated, in whole or in part, using a voice recognition dictation system. Departure Departure Impression: Primary Impression: Foot pain Disposition: 03 TRANSFER SNF Condition: STABLE Referrals: JAVI WELCH MD (PCP) DOMINGO LYNCH MD Aug 06, 2018 17:18
--- NOTE | 2018-08-06 17:35 | RAD ---
Left lower extremity arterial Doppler ultrasound HISTORY: COOL LT LEG TECHNIQUE: Color Doppler, grayscale and duplex analysis performed of the lower extremity arterial structures, from the common femoral artery through the runoff vessels. COMPARISON: None are available Findings: All velocity measurements are in centimeters per second. All vessels are biphasic, from the right common femoral artery through the calf and dorsalis pedis artery. Common femoral artery velocity is 185. Velocities from the superficial femoral artery through the dorsalis pedis artery range from 43 through 143. No areas of high-grade luminal narrowing or occlusion are identified. IMPRESSION: Diffuse biphasic waveform morphology. No sonographic evidence of focal occlusion or high-grade stenosis. Electronically signed by: Taurus Dalal MD (08/06/2018 5:32 PM) [facility]
[2018-08-06 17:45] VITALS: BP 159/116
== END 2018-08-06 19:12 | disposition home or self-care (01) ==
LOC: ER 14:26
DX: M79.671 Pain in right foot (principal); R20.8 Other disturbances of skin sensation; E78.00 Pure hypercholesterolemia, unspecified; F03.90 Unspecified dementia, unspecified severity, without behavioral disturbance, psychotic disturbance, mood disturbance, and anxiety; E03.9 Hypothyroidism, unspecified; I10 Essential (primary) hypertension; M10.9 Gout, unspecified; Z86.73 Personal history of transient ischemic attack (TIA), and cerebral infarction without residual deficits; Z86.718 Personal history of other venous thrombosis and embolism; Z90.710 Acquired absence of both cervix and uterus; Z95.0 Presence of cardiac pacemaker; Z95.5 Presence of coronary angioplasty implant and graft
CPT/HCPCS: 36415; 80053; 84484; 85025; 85610; 93005; 93926; 99285-25